=== PATIENT | female | born 1980 | race Caucasian/White ===

== ENCOUNTER 2019-10-19 18:26 | Emergency (ER) | payer MEDICAID ==
[~2019-10-19] VITALS: Ht 152.4 cm; Wt 43.1 kg
[2019-10-19 18:30] VITALS: BP 91/58
--- NOTE | 2019-10-19 18:34 | NUR ---
39 Y/O FEMALE FROM HOME BIBA S/P 3 WITNESSED SEIZURES AT HOME. PT WAS GIVEN 5MG VERSED IN IN ROUTE. 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 PT AOX4 AT THIS TIME. DENIES PAIN. RR EVEN AND UNLABORED. STATES SHE HAS BED SORE TO SACRUM. POSITIONED FOR COMFORT. SEIZURE PRECAUTIONS IN PLACE. VSS. PLACED ON THEATER TECHNICIAN, PULSE OX, AND BP CUFF MEDHX: HTN, HEP C, DM, SEIZURES
--- NOTE | 2019-10-19 18:35 | NUR ---
DR CARROLL AT BEDSIDE EXAMINING PT
[2019-10-19] MEDS ORDERED: NACL 0.9% 500 ML IV SCH (19:31)
--- NOTE | 2019-10-19 20:00 | NUR ---
LAB AT BEDSIDE, ABLE TO OBTAIN SPECIMEN
[2019-10-19] MEDS ORDERED: MORPHINE SULFATE 2 MG/ML SYR IM ONE (20:15)
[2019-10-19] MEDS ORDERED: ONDANSETRON 4 MG ODT PO ONE (20:20)
[2019-10-19 20:23] LABS: BASOPHILS # (AUTO) 0.1 K/uL (0.00-0.22); BASOPHILS % (AUTO) 0.7 % (0.0-2.0); EOSINOPHILS # (AUTO) 0.1 K/uL (0-0.4); HEMATOCRIT 31.4 % (36-48); HEMOGLOBIN 10.3 g/dL (12.0-16.0); LYMPHOCYTES # (AUTO) 2.2 K/uL (2.5-16.5); MEAN CORPUSCULAR HEMOGLOBIN 28 pg (27-31); MEAN CORPUSCULAR HGB CONC 33 g/dL (33-37); MEAN CORPUSCULAR VOLUME 85.9 fL (80-94); MONOCYTES # (AUTO) 0.5 K/uL (0.8-1.0); MONOCYTES % (AUTO) 6.5 % (1.7-9.3); NEUTROPHILS # (AUTO) 5.3 K/uL (1.8-7.7); NEUTROPHILS % (AUTO) 64.8 % (42.2-75.2); PLATELET COUNT (AUTO) 449 K/uL (140-450); RED BLOOD CELL COUNT(AUTO) 3.65 MIL/uL (4.20-5.40); RED CELL DISTRIBUTION WIDTH 15.2 % (11.6-13.7); WHITE BLOOD COUNT (AUTO) 8.2 K/uL (4.8-10.8)
[2019-10-19 20:38] LABS: PROTHROMBIN TIME 8.7 secs (10.8-13.4)
[2019-10-19 20:43] LABS: ALBUMIN 1.9 g/dL (3.4-5.0); ANION GAP 15.2 (8-16); CREATININE 1.2 mg/dL (0.6-1.3); POTASSIUM 3.2 mmol/L (3.5-5.1); TOTAL BILIRUBIN 0.1 mg/dL (0.0-1.0)
[2019-10-19] MEDS ORDERED: LEVOFLOXACIN 500 MG TAB PO ONE (20:50)
--- NOTE | 2019-10-19 21:01 | NUR ---
URINE COLLECTED VIA ALVAREZ BAG-- GIVEN TO LAB.
[2019-10-19 21:03] LABS: ACETAMINOPHEN < 0.5 ug/ml (10-30); SALICYLATE < 2.8 mg/dL (2.8-20.0)
[2019-10-19 21:05] LABS: APPEARANCE,URINE CLOUDY (CLEAR); BILIRUBIN,URINE NEGATIVE (NEGATIVE); BLOOD, URINE 2+ (NEGATIVE); COLOR,URINE YELLOW (YELLOW); LEUKOCYTE ESTERASE ,URINE 2+ (NEGATIVE); NITRITE, URINE NEGATIVE (NEGATIVE); UGLUCOSE TRACE (NEGATIVE)
[2019-10-19 21:33] LABS: BARBITURATE, URINE NEGATIVE ng/ml (NEG <=200); BENZODIAZEPINE, URINE NEGATIVE ng/mL (NEG <=200); CANNABINOID, URINE NEGATIVE ng/mL (NEG <=50); COCAINE, URINE NEGATIVE ng/mL (NEG <=300); OPIATE, URINE POSITIVE ng/mL (NEG <=2000); PHENCYCLIDINE SCREEN,URINE NEGATIVE ng/mL (NEG <=25)
[2019-10-19] MEDS ORDERED: levETIRAcetam 500 MG TAB PO ONE (21:35)
[2019-10-19 21:58] LABS: RBC,URINE 0-5 /HPF (0-5); WBC,URINE 60-80 /HPF (0-5)
[2019-10-19 22:23] VITALS: BP 91/58
== END 2019-10-19 22:23 | disposition home or self-care (01) ==
LOC: MED 18:26
DX: R56.9 Unspecified convulsions (principal); N39.0 Urinary tract infection, site not specified; E11.9 Type 2 diabetes mellitus without complications; I10 Essential (primary) hypertension
CPT/HCPCS: 36415; 71045; 80053; 80305; 81001; 83605; 83880; 84484; 85025; 85610; 85730; 87040; 87086; 87186; 93005; 96372; 99285; G0480; G0482; J2270; Q0092; Q0162

== ENCOUNTER 2019-10-21 18:23 | Inpatient (IN) | payer MEDICAID ==
[~2019-10-21] VITALS: Ht 152.4 cm; Wt 45.4 kg
[2019-10-21 18:23] VITALS: BP 117/79
--- NOTE | 2019-10-21 18:23 | NUR ---
Patient BIBA ALS accompanied by Larissa ramirez 183, transferred to bed 7. RN evaluating patient at bedside.
--- NOTE | 2019-10-21 18:33 | NUR ---
BIBA C/O SEIZURE, X3 EPISODES LASTING 30 SECONDS EACH WITHIN 2 MINUTES, SEIZURES OCCURRED IN BED, NO TRAUMA NOTED; 2 SEIZURES WITNESSED BY EMS; PT DOES NOT FEVER, SOB, OR COUGH NOTICED AT THIS TIME; PATIENT'S PAIN IS 0/10 ON FLACC SCALE AT THIS TIME; A&OX0 BUT PT CAN BE AROUSED BY VOICE. VSS; PATIENT POSITIONED FOR COMFORT; HOB ELEVATED; BEDRAILS UP WITH SEIZURE PADS X2; BED DOWN. ER MD MADE AWARE OF PT STATUS.
--- NOTE | 2019-10-21 18:35 | NUR ---
Dr. Osuna is evaluating the patient at bedside.
[2019-10-21] MEDS ORDERED: levETIRAcetam 1,000 MG in NACL 0.9% 100 ML IV ONE (18:50)
[2019-10-21] MEDS ORDERED: LORazepam 2 MG/ML VIAL IVP ONE (18:50)
[2019-10-21] MEDS ORDERED: levETIRAcetam 100 MG/ML VIAL IV ONE (18:56)
--- NOTE | 2019-10-21 19:18 | NUR ---
RECEIVED REPORT FROM JAZMÍN HUFFMAN FOR CONTINUATION OF CARE.
--- NOTE | 2019-10-21 19:25 | NUR ---
Pt report given to JAZMÍN Edmond. Transfer of care at this time.
--- NOTE | 2019-10-21 19:28 | NUR ---
LAB AT BEDSIDE.
--- NOTE | 2019-10-21 19:36 | NUR ---
PT TAKEN TO CT VIA [facility].
--- NOTE | 2019-10-21 19:45 | NUR ---
PT SAO2 99% ON RM AIR, NO OXYGEN NEEDED AT THIS TIME.
--- NOTE | 2019-10-21 19:53 | NUR ---
PT RETURNED FROM CT VIA [facility].
--- NOTE | 2019-10-21 20:02 | NUR ---
PT C/O 11/[address] CARROLL MADE AWARE. PER DR. CARROLL ADMINISTER IM 2ML TORADOL.
[2019-10-21] MEDS ORDERED: KETOROLAC 60 MG/2 ML VIAL IM ONE (20:05)
--- NOTE | 2019-10-21 20:06 | NUR ---
PT STATES SHE JUST REMEMBERED SHE IS ALLERGIC TO TORADOL AND WISHES TO REFUSE MEDICATION. ERMD MADE AWARE.
--- NOTE | 2019-10-21 20:15 | NUR ---
FREDDY MADE AWARE PT ALLERGIC TO KETOROLAC AND WISHES TO REFUSE MEDICATION. PER DR. CARROLL ADMINISTER 1GM TYLENOL FOR PT PAIN.
[2019-10-21 20:33] LABS: BASOPHILS # (AUTO) 0.2 K/uL (0.00-0.22); BASOPHILS % (AUTO) 1.7 % (0.0-2.0); EOSINOPHILS # (AUTO) 0.2 K/uL (0-0.4); EOSINOPHILS % (AUTO) 2.3 % (0.0-4.0); HEMATOCRIT 31.1 % (36-48); HEMOGLOBIN 10.3 g/dL (12.0-16.0); LYMPHOCYTES # (AUTO) 3.3 K/uL (2.5-16.5); MEAN CORPUSCULAR HEMOGLOBIN 28 pg (27-31); MEAN CORPUSCULAR HGB CONC 33 g/dL (33-37); MEAN CORPUSCULAR VOLUME 85.5 fL (80-94); MONOCYTES # (AUTO) 0.5 K/uL (0.8-1.0); MONOCYTES % (AUTO) 5.6 % (1.7-9.3); NEUTROPHILS % (AUTO) 54.4 % (42.2-75.2); PLATELET COUNT (AUTO) 395 K/uL (140-450); RED BLOOD CELL COUNT(AUTO) 3.64 MIL/uL (4.20-5.40); RED CELL DISTRIBUTION WIDTH 15.5 % (11.6-13.7); WHITE BLOOD COUNT (AUTO) 9.1 K/uL (4.8-10.8)
[2019-10-21 20:46] LABS: ANION GAP 12.8 (8-16); CARBON DIOXIDE 16.4 mmol/L (21-32); CREATININE 1.2 mg/dL (0.6-1.3); POTASSIUM 3.2 mmol/L (3.5-5.1)
[2019-10-21] MEDS ORDERED: ACETAMINOPHEN EXTRA STRENGTH 500 MG TAB PO ONE (20:55)
[2019-10-21] MEDS ORDERED: HYDROcodone/APAP 7.5/325 MG 1 TAB PO PRN (21:00)
[2019-10-21] MEDS ORDERED: DOCUSATE SODIUM 100 MG GELCAP PO PRN (21:00)
[2019-10-21] MEDS ORDERED: ONDANSETRON 4 MG/2 ML VIAL IM/IVP PRN (21:00)
[2019-10-21 21:17] LABS: APPEARANCE,URINE HAZY (CLEAR); BILIRUBIN,URINE NEGATIVE (NEGATIVE); BLOOD, URINE TRACE-I (NEGATIVE); COLOR,URINE STRAW (YELLOW); LEUKOCYTE ESTERASE ,URINE 2+ (NEGATIVE); NITRITE, URINE NEGATIVE (NEGATIVE); UGLUCOSE 1+ (NEGATIVE)
[2019-10-21 21:32] LABS: RBC,URINE 0-5 /HPF (0-5)
[2019-10-21 21:33] LABS: WBC,URINE TOO MANY TO COUNT /HPF (0-5)
[2019-10-21 21:35] LABS: PROTHROMBIN TIME 9.3 secs (10.8-13.4)
[2019-10-21 21:49] LABS: CHOL/HDL RATIO 2.8 (1-4.5); MAGNESIUM 1.5 mg/dL (1.8-2.4); PHOSPHORUS 2.7 mg/dL (2.5-4.9); THYROID STIMULATING HORMONE 2.04 uIU/mL (0.34-3.74)
--- NOTE | 2019-10-21 22:25 | NUR ---
Dr. Abbasi examining patient.
[2019-10-21] MEDS ORDERED: CHOL1POW67 (22:43)
[2019-10-21] MEDS ORDERED: FLUD0.1T2 PO (22:43)
[2019-10-21] MEDS ORDERED: PRO5 PO (22:43)
[2019-10-21] MEDS ORDERED: GABA100C PO (22:43)
[2019-10-21] MEDS ORDERED: METO-485 PO (22:43)
[2019-10-21] MEDS ORDERED: CARI350T PO (22:43)
[2019-10-21] MEDS ORDERED: PANT40PK PO (22:43)
[2019-10-21] MEDS ORDERED: OMEP20TA56 PO (22:43)
[2019-10-21] MEDS ORDERED: KEP500 PO (22:43)
[2019-10-21] MEDS ORDERED: MORPHINE SULFATE 2 MG/ML SYR IVP ONE (23:05)
--- NOTE | 2019-10-22 00:05 | NUR ---
Patient will be admitted to care of DR. CONTRERAS. Admited to TELEMETRY. Will go to room 125B. Belongings list completed. Report to AKILA ROSEN RN.
[2019-10-22] MEDS ORDERED: DEXTROSE 50% 50 ML SYR IVP PRN (00:10)
[2019-10-22 00:15] VITALS: BP 89/55
[2019-10-22] MEDS ORDERED: MAG SULF 2000 MG/WATER PREMIX 50 ML IV ONE (00:25)
[2019-10-22] MEDS ORDERED: POTASSIUM CHLORIDE 40 MEQ, LIDOCAINE MPF 1% 25 MG in NACL 0.9% 250 ML IV ONE (00:25)
--- NOTE | 2019-10-22 00:30 | NUR ---
ADMITTED THE PATIENT FROM ER VIA GURNEY. PATIENT A/A/OX4, ON BEDREST. PATIENT HAS GENERALIZED WEAKNESS. PER PT SHE HASN'T BEEN WALKING FOR 6 MONTHS NOW. BP 89/55, PT HAS HX OF HYPOTENSION,HR-98,RR-18, TEMP-98.5, SATING 99% ON RA. PT COMPLAINING OF GENERALIZED PAIN 10/10 AND ASKED FOR PRN PAIN MEDS. PATIENT HAS A 1 TIME ORDER FOR MORPHINE FROM ER,GIVEN ORDERED. WILL MONITOR PT BP. OTHERWISE PT DENIES ANY CHEST PAIN,SOB AND DIZZINESS. SR ON AGENCY TRAINER, HR-100. ORIENTED THE PATIENT TO THE ROOM SETTING AND USE OF CALL LIGHT SYSTEM. FALL PRECAUTION IMPLEMENTED..INSTRUCTED THE PT NOT TO GET OOB WITHOUT ASSISTANCE. PATIENT VERBALIZED UNDERSTANDING WITH THE POC. CALL LIGHT WITHIN REACH. WILL CONTINUE POC AND MONITORING.
[2019-10-22] MEDS ORDERED: MORPHINE SULFATE 2 MG/ML SYR ONE (00:49)
[2019-10-22] MEDS ORDERED: cefTRIAXone 1,000 MG VIAL ONE (02:06)
--- NOTE | 2019-10-22 03:05 | NUR ---
PATIENT ASLEEP AT THIS TIME. VISIBLE CHEST RISE AND FALL NOTED. CALL LIGHT WITHIN REACH.
[2019-10-22 04:00] VITALS: BP 89/51
--- NOTE | 2019-10-22 04:30 | NUR ---
Dr abbasi made aware that the potassium chloride 40 meq IV with lidocaine he ordered won't be able to give tonight because Pharmacy has to mix it and will be given during day shift. Per Dr Abbasi its Ok and no further order given.
--- NOTE | 2019-10-22 06:30 | NUR ---
PATIENT DIDN'T HAVE BM. WILL ENDORSE TO DAY SHIFT TO COLLECT THE C-DIFF SPECIMEN IF THE PATIENT GOES.NO ACUTE EVENTS THROUGHOUT THE NIGHT. NO SIGN AND SYMPTOMS OF DISTRESS NOTED. NO COMPLAIN AT THIS TIME. ALL NEEDS ATTENDED.CALL LIGHT WITHIN REACH. WILL ENDORSE THE PT TO THE ONCOMING RN FOR CONTINUITY OF CARE.
[2019-10-22 07:30] LABS: BASOPHILS # (AUTO) 0.1 K/uL (0.00-0.22); BASOPHILS % (AUTO) 0.8 % (0.0-2.0); EOSINOPHILS # (AUTO) 0.2 K/uL (0-0.4); EOSINOPHILS % (AUTO) 2.8 % (0.0-4.0); HEMATOCRIT 31.7 % (36-48); HEMOGLOBIN 10.3 g/dL (12.0-16.0); LYMPHOCYTES # (AUTO) 4.1 K/uL (2.5-16.5); LYMPHOCYTES % (AUTO) 46.8 % (20.5-51.1); MEAN CORPUSCULAR HEMOGLOBIN 28 pg (27-31); MEAN CORPUSCULAR HGB CONC 33 g/dL (33-37); MEAN CORPUSCULAR VOLUME 85.2 fL (80-94); MONOCYTES # (AUTO) 0.5 K/uL (0.8-1.0); MONOCYTES % (AUTO) 5.8 % (1.7-9.3); NEUTROPHILS # (AUTO) 3.9 K/uL (1.8-7.7); NEUTROPHILS % (AUTO) 43.8 % (42.2-75.2); PLATELET COUNT (AUTO) 263 K/uL (140-450); RED BLOOD CELL COUNT(AUTO) 3.72 MIL/uL (4.20-5.40); RED CELL DISTRIBUTION WIDTH 15.4 % (11.6-13.7); WHITE BLOOD COUNT (AUTO) 8.8 K/uL (4.8-10.8)
[2019-10-22 08:00] VITALS: BP 95/58
--- NOTE | 2019-10-22 08:02 | NUR ---
RECEIVED REPORT FROM PM RN, KAMRAN. PT C/O SEIZURES. DX OF SEIZURES NON-EPILECTIC. HX OF HYPOTENSION, DM, SEIZURES. CLEAR LIQUID DIET. FOLY IN PLACE. 18G IN LT UPPER ARM. A&OX4. MONITOR BLOOD SUGAR. WILL CONTINUE PLAN OF CARE.
--- NOTE | 2019-10-22 08:25 | NUR ---
PATIENT HAS BEEN SCREENED AND CATEGORIZED HIGH NUTRITION RISK. PATIENT WILL BE SEEN WITHIN 1-2 DAYS OF ADMISSION. 10/22/19-10/23/[address]
--- NOTE | 2019-10-22 08:30 | NUR ---
PT HAD SEIZURE THAT LASTED 15 SEC. ATIVAN GIVEN 1MG/0.5ML IVP. PHYSICIAN NOTIFIED. PT RETURNED FROM SEIZURE. NO HEAD TRAUMA.
--- NOTE | 2019-10-22 08:30 | NUR ---
BLOOD SUGAR WAS 52. PHYSICIAN NOTIFIED. CONTINUE TO MONITOR. GAVE FRUIT JUICE TO HELP INCREASE BLOOD GLUCOSE.
[2019-10-22] MEDS: LORazepam 2 MG/ML VIAL IM/IVP PRN ×2 (08:37→18:46)
[2019-10-22] MEDS: BLOOD GLUCOSE MONITORING 1 DEV DEV FS SCH ×4 (08:41→20:47)
[2019-10-22] MEDS ORDERED: levETIRAcetam 500 MG TAB PO SCH (09:00)
[2019-10-22] MEDS: FLUDROCORTISONE 0.1 MG TAB PO SCH (09:00)
[2019-10-22] MEDS ORDERED: NON-FORMULARY ITEM (Pantoprazole Sodium (Protonix) 40 MG) PO SCH (09:00)
[2019-10-22] MEDS: GABAPENTIN 100 MG CAP PO SCH ×3 (09:00→20:44)
[2019-10-22] MEDS: MIDODRINE 5 MG TAB PO SCH ×2 (09:00→20:45)
[2019-10-22] MEDS: PANTOPRAZOLE 40 MG TABEC PO SCH (09:00)
[2019-10-22] MEDS ORDERED: levETIRAcetam 1,000 MG in NACL 0.9% 100 ML IV SCH (10:00)
[2019-10-22 12:00] VITALS: BP 127/73
[2019-10-22] MEDS: CARISOPRODOL 350 MG TAB PO SCH (12:21)
[2019-10-22 14:10] LABS: BARBITURATE, URINE NEGATIVE ng/ml (NEG <=200); BENZODIAZEPINE, URINE NEGATIVE ng/mL (NEG <=200); CANNABINOID, URINE NEGATIVE ng/mL (NEG <=50); COCAINE, URINE NEGATIVE ng/mL (NEG <=300); OPIATE, URINE POSITIVE ng/mL (NEG <=2000); PHENCYCLIDINE SCREEN,URINE NEGATIVE ng/mL (NEG <=25)
--- NOTE | 2019-10-22 15:33 | NUR ---
RAPID RESPONSE CALLED. RT, ELECTRIC DETECTOR OPERATOR, PHYSICIAN, MEDICAL CERTIFICATION SPECIALIST, EMT ARRIVED AT BEDSIDE. PT HAD ANOTHER SEIZURE THAT LASTED 10 SECS. NO ATIVAN GIVEN. BLOOD SUGAR WAS 71. BLOOD PRESSURE WAS LOW 86/41. HR INCREASED TO 125. RESPIRATIONS 24. O2 SAT 96% RA. SEIZURE ACTIVITY STOPPED. PT LOOKED IF SHE WAS SLEEPING. PHYSICIAN STATED TO WATCH PT. NO ADDITIONAL ORDERS.
--- NOTE | 2019-10-22 15:37 | NUR ---
DISCHARGE PLANNING: THIS IS A 39 Y/O FEMALE PATIENT FROM HOME, WHO CAME IN DUE TO SEIZURES. PAST MEDICAL HISTORY INCLUDE DM, HEP C, EPILEPSY, LOWER EXT NEUROPATHY AND ADRENAL INSUFFICIENCY. INITIAL DIAGNOSIS OF PERSISTENT THERAPEUTIC SEIZURES. CURRENT LABS INCLUDE WBC 8.8, H/H 10.3/31.7, NA/K 136/3.2, BUN/CREA 26/1.2. NEURO CONSULT IN PLACE AND SEEN - EEG, UDS AND ETOH LEVEL PENDING. ONCE SEIZURE FREE FOR 24 HOURS OK TO DC TO HOME ON KEPPRA 1000MG BID. Addendum: 10/23/19 at 1435 by Monica Arteaga CURRENT LABS INCLUDE WBC 9.2, H/H 10.2/31.5, NA/K 138/3.6, BUN/CREA 35/1.5 AND MAG 1.7. ON ROOM AIR. ON KEPPRABOB.
--- NOTE | 2019-10-22 15:38 | NUR ---
ENVIRONMENTAL STUDIES DEPARTMENT CHAIR NOTE: Patient's Orientation Person Situation Place Time Information Provided By PATIENT Repair Mechanic, Realtionship and Phone Number FRANNIE JOYNER MOTHER [phone] Healthcare Power of Mixer [employer] No Does Patient Have a POLST No Identifying Problems No Social Work Triggers Is A Social Work Consult Needed No Mandate Report Filed No Explanation Of Identifying Problems PATIENT IS A 39-YEAR-OLD ADMITTED FOR PERSISTENT THERAPEUTIC SEIZURES. PATIENT HAS PMHX OF DM, HEP C, EPILEPSY, AND LOWER EXTREMITY NEUROPATHY. Admitted From Home Pre-Admission Level Of Functioning Status Independent With DME Prior Resources/Services Used In Last 12 Months [facility] Prior Resources/Service Comments PATIENT IS IN THE PROCESS OF APPLYING FOR [facility]. PATIENT'S CHOSEN CAREGIVER IS DARREL MICHELLERERA [phone]. Prior DME Home Oxygen Walker Wheelchair Living Situation House Patient Had Caregiver Yes Name and Contact Number Of Designated Caregiver DARREL ELLIS [phone]. Home Support CG/Fam Able To Meet Need Financial Issues No Known Financial Issue Factors/Needs No D/C Needs Identified Pt/Rep Participated In Discharge Plan Yes Patient/Family Agress With Discharge Plan Yes Discharge Plan Comments TENTATIVE DISCHARGE PLAN IS FOR PATIENT TO RETURN HOME. DC Plan Status Initiated
--- NOTE | 2019-10-22 15:51 | NUR ---
10/22/19 RD INITIAL ASSESSMENT COMPLETED PLEASE REFER TO NUTRITION ASSESSMENT UNDER CARE ACTIVITY FOR ESTIMATED NUTRITIONAL NEEDS. 1. CONTINUE REGULAR DIET TOLERATED 2. RECOMMEND GLUCERNA BID AND JAMEL BID 3. SNACKS WILL BE PROVIDED 3X DAY 4. FOLLOW PATIENTS FOOD PREFERENCES 5. RD PROVIDED HIGH CALORIE AND PROTEIN DIET EDUCATION 6. RD TO FOLLOW-UP 3-5 DAYS, MODERATE RISK JOB MUNOZ, RD
[2019-10-22 16:00] VITALS: BP 81/46
[2019-10-22 16:36] LABS: MAGNESIUM 1.7 mg/dL (1.8-2.4)
[2019-10-22 16:45] LABS: POTASSIUM 3.7 mmol/L (3.5-5.1)
[2019-10-22 16:46] LABS: CREATININE 1.3 mg/dL (0.6-1.3)
[2019-10-22 16:47] LABS: ANION GAP 25.9 (8-16); CARBON DIOXIDE 8.8 mmol/L (21-32)
--- NOTE | 2019-10-22 16:57 | NUR ---
SPOKE WITH PHYSICIAN ABOUT ABOUT K RIDER THAT WAS NOT GIVEN LAST NIGHT, PHYSICIAN DC MEDICATION. SPOKE TO PHYSICIAN ABOUT A LAB VALUE. LOW CO2 8.8. NO FURTHER ASSESSMENTS AT THIS TIME. CONTINUE TO MONITOR.
--- NOTE | 2019-10-22 18:30 | NUR ---
PT HAD ANOTHER SEIZURE AT 1830 THAT LASTED 15 SECS. ATIVAN 1MG/0.5ML GIVEN. PT HAD A BOWEL MOVEMENT. NO HEAD TRAUMA. POST SEIZURE, PT STATED THAT SHE HAD AN AURA PROCEEDING SEIZURE. PT NOW RESTING IN BED SUPINE. WILL CONTINUE TO MONITOR.
--- NOTE | 2019-10-22 19:00 | NUR ---
TRANSFER OF CARE TO PM, JAZMÍN THAKKAR. NOTIFIED ONCOMING SHIFT OF PT SEIZURES THROUGH OUT THE DAY. FREQUENT ROUNDING NEEDED.
--- NOTE | 2019-10-22 19:00 | NUR ---
RECEIVED PT AAOX4 , NID - RA O2 SAT WNL . SAFETY MEASURE IN PLACE - ON S2 PREC . IV SITE INTACT AND PATENT - W/ OPEN WOUND ON SACRAL AREAS , W/ FC JOSE L JOHNSON U.O . PLAN OF CARE DISCUSSED AND VERBALIZE UNDERSTANDING - STOOL SPECIMEN TO BE SENT TO LAB FOR STOOL C DIFF - ON CONTACT PREC. WILL CONT . TO MONITOR.
[2019-10-22 20:00] VITALS: BP 100/60
--- NOTE | 2019-10-22 20:32 | NUR ---
OUR CHARGE NURSE ARUN APPROACH TO ME SHE SAID THE AM NURSE ADMINISTERED THE GABAPENTIN TOO LATE , PER ARUN GIVE GABAPENTIN AND PROAMANTINE NOW .
[2019-10-22] MEDS: levETIRAcetam 500 MG TAB PO SCH (20:45)
[2019-10-22] MEDS ORDERED: LORazepam 1 MG TAB PO SCH (21:40)
--- NOTE | 2019-10-22 22:23 | NUR ---
PT. SLEEPING - ATIVAN TAB. NOT GIVEN - PT SOUNDLY ASLEEP - JUST GIVEN KEPPRA WHILE AGO .
[2019-10-23] VITALS: BP 111/61
--- NOTE | 2019-10-23 | NUR ---
MADE ROUNDS , NO S/SX OF ACTE DISTRESS NOTED AT THIS TIME , ON TELE MONITOR.
--- NOTE | 2019-10-23 02:00 | NUR ---
PT .NO COMPLAIN MADE .
[2019-10-23] MEDS ORDERED: LOPERAMIDE 2 MG CAP PO SCH (02:25)
[2019-10-23 04:00] VITALS: BP 100/60
--- NOTE | 2019-10-23 04:00 | NUR ---
MADE ROUNDS , NO S/SX OF ACUTE DISTRESS NOTED . CALL LIGHT WITHIN REACH .
--- NOTE | 2019-10-23 06:00 | NUR ---
RESTING ON BED , NO COMPLAIN MADE . HAD WATERY BM IN SMALL AMT 4 X FROM 1900 - WILL ENDORSE TO SURJIT MONITOR PROGRESSION OF DIARRHEA AND BP - PT HAD HX OF HYPOTENSION .
[2019-10-23] MEDS: BLOOD GLUCOSE MONITORING 1 DEV DEV FS SCH ×4 (06:01→20:33)
[2019-10-23] MEDS: INSULIN LISPRO SLIDING SCALE 100 UNITS/ML VIAL SUBQ PRN ×4 (06:02→20:29)
[2019-10-23 06:39] LABS: BASOPHILS # (AUTO) 0.1 K/uL (0.00-0.22); EOSINOPHILS # (AUTO) 0.2 K/uL (0-0.4); EOSINOPHILS % (AUTO) 2.3 % (0.0-4.0); HEMATOCRIT 31.5 % (36-48); HEMOGLOBIN 10.2 g/dL (12.0-16.0); LYMPHOCYTES # (AUTO) 2.8 K/uL (2.5-16.5); LYMPHOCYTES % (AUTO) 30.8 % (20.5-51.1); MEAN CORPUSCULAR HEMOGLOBIN 28 pg (27-31); MEAN CORPUSCULAR HGB CONC 33 g/dL (33-37); MEAN CORPUSCULAR VOLUME 86.1 fL (80-94); MONOCYTES # (AUTO) 0.5 K/uL (0.8-1.0); MONOCYTES % (AUTO) 5.1 % (1.7-9.3); NEUTROPHILS # (AUTO) 5.6 K/uL (1.8-7.7); NEUTROPHILS % (AUTO) 60.8 % (42.2-75.2); PLATELET COUNT (AUTO) 423 K/uL (140-450); RED BLOOD CELL COUNT(AUTO) 3.66 MIL/uL (4.20-5.40); RED CELL DISTRIBUTION WIDTH 15.8 % (11.6-13.7); WHITE BLOOD COUNT (AUTO) 9.2 K/uL (4.8-10.8)
[2019-10-23 07:05] LABS: PHOSPHORUS 3.7 mg/dL (2.5-4.9)
[2019-10-23 07:11] LABS: ANION GAP 13.5 (8-16); CARBON DIOXIDE 18.1 mmol/L (21-32); CREATININE 1.5 mg/dL (0.6-1.3); POTASSIUM 3.6 mmol/L (3.5-5.1)
--- NOTE | 2019-10-23 07:12 | NUR ---
ENDORSED TO AM SHIFT - PT - STABLE .
[2019-10-23 07:19] LABS: T4 (THYROXINE) 5.2 ug/dL (4.5-12.0)
--- NOTE | 2019-10-23 07:20 | NUR ---
RECEIVED REPORT FROM GIS APPLICATION DEVELOPER NURSE. PATIENT LYING DOWN IN BED. NO DISTRESS NOTED. PER NIGHT RN, NO SEIZURES THROUGHOUT NIGHTTIME. AAOX3, CALM, COOPERATIVE, SKIN COLOR APPROPRIATE TO ETHNICITY, WARM TO TOUCH. HAS SACRAL WOUND, DRESSING DRY AND INTACT. IV SITE INTACT, PATENT,A ND INFUSING IVF PER MD ORDERS. RESPIRATIONS EVEN, UNLABORED, ON ROOM AIR. REVIEWED PLAN OF CARE WITH PATIENT. PATIENT VERBALIZED UNDERSTANDING. SAFETY MEASURES IN PLACE, CALL LIGHT WITHIN REACH. WILL CONTINUE TO MONITOR.
[2019-10-23 08:00] VITALS: BP 106/52
[2019-10-23] MEDS: LORazepam 2 MG/ML VIAL IM/IVP PRN ×3 (08:43→20:15)
[2019-10-23] MEDS: FLUDROCORTISONE 0.1 MG TAB PO SCH (08:45)
[2019-10-23] MEDS: MIDODRINE 5 MG TAB PO SCH ×2 (08:45→17:48)
[2019-10-23] MEDS: levETIRAcetam 500 MG TAB PO SCH ×2 (08:45→20:30)
[2019-10-23] MEDS: GABAPENTIN 100 MG CAP PO SCH ×3 (08:47→17:48)
[2019-10-23] MEDS: PANTOPRAZOLE 40 MG TABEC PO SCH (08:47)
[2019-10-23] MEDS: CARISOPRODOL 350 MG TAB PO SCH (08:50)
--- NOTE | 2019-10-23 08:51 | NUR ---
PATIENT SITTING IN BED EATING BREAKFAST, PRESSED CALL LIGHT AND SAID SHE WAS FEELING AURA FOR SEIZURE ABOUT TO START. GAVE ATIVAN AT THIS TIME PER ORDERS AND OTHER SCHEDULED MEDICATIONS. WILL CONTINUE TO MONITOR.
--- NOTE | 2019-10-23 09:04 | NUR ---
ASSISTED ROTO ROOTER OPERATOR IN CLEANING AND REPOSITIONING PATIENT. WILL CONTINUE TO MONITOR.
--- NOTE | 2019-10-23 10:11 | NUR ---
WOUND CARE EVALUATION NOTE: REASON FOR EVALUATION: LOW VIN SCALE AND PRESSURE ULCER WOUND SKIN ASSESSMENT DONE WITH THIS 39Y/O FEMALE PT. PT EYES OPENED WHEN TALK TO HER, BED REST AND ABLE TO FOLLOW DIRECTIONS.ALBUMIN LEVEL 1.9, MULTIPLE BONY PROMINENCES WITH BLANCHABLE REDNESS, INSTRUCT PT. TO TURN AND REPOSITION Q 15-30 MINUTES OR FREQUENT POSSIBLE. PT SKIN IS WARM AND DRY, BLE HAIR NO HAIR GROWTH, NO EDEMA. DORSAL PEDAL PULSES PRESENT AND NORMAL. CAPILLARY REFILLED < 2 SEC. X 10 TOES. PLAN OF CARE DISCUSSED WITH PRIMARY RN. INTEGUMENTARY: -MOISTURE ASSOCIATED DERMATITIS (MAD) TO: B/L GROINS, DARREL-ANAL AREA, SKIN REDNESS INTACT -PRESSURE ULCER INJURY UN-STAGEABLE, SACROCOCCYX 2X1CM, WOUND BED 100% OF SOFT YELLOW SLOUGH TISSUE, MOIST WOUND EDGE FLAT WITH DARREL-WOUND SKIN MOIST AND SURROUNDING REDNESS INDICATED FURTHER DAMAGE. -LOWER LUMBAR, PELVIC, RIGHT AND LEFT HEELS BLANCHABLE REDNESS RECOMMENDATIONS: -APPLY HYDRAGUARD TO R/L GROINS AND PERIANAL AREA BID AND PRN IF SOILING - CLEANSE SACRALCOCCYX WITH WOUND CLEANSING SOLUTION AND APPLY THERAHONEY GEL COVER WITH FOAM DRESSING QD AND PRN IF SOILING -APPLY FOAM DRESSING TO LOWER LUMBAR, PELVIC, BONES AREA PREVENTION -OFFLOAD BILATERAL HEELS BY PLACING PILLOWS UNDER CALVES UNLESS OTHERWISE CONTRAINDICATED -PRESSURE REDISTRIBUTION SURFACE THERAPY -TURN AND REPOSITION Q2H, OFFLOAD SACRALCOCCYX AND BUTTOCKS BY TURNING RIGHT AND LEFT -CONTINUE TO FOLLOW RD RECOMMENDATIONS ALL ABOVE RECOMMENDATIONS DISCUSSED WITH PRIMARY RN. PLEASE CONTACT WOUND CARE NURSE FOR ANY QUESTION AND CHANGE OF WOUND CONDITION.
[2019-10-23] MEDS: NACL 0.9% 1,000 ML IV SCH ×2 (10:20→13:18)
--- NOTE | 2019-10-23 11:30 | NUR ---
ON SITE SOIL EVALUATOR AT BEDSIDE TO PERFORM EEG. WILL CONTINUE TO MONITOR.
[2019-10-23] MEDS ORDERED: THERAHONEY GEL 42.5 GM TP PRN (11:40)
[2019-10-23] MEDS ORDERED: HYDRAGUARD CREAM TP PRN (11:40)
[2019-10-23 12:00] VITALS: BP 114/56
[2019-10-23] MEDS: HYDRAGUARD CREAM TP SCH (12:58)
[2019-10-23] MEDS: THERAHONEY GEL 42.5 GM TP SCH (12:58)
[2019-10-23] MEDS ORDERED: FOAM DRESSING TP SCH (13:00)
--- NOTE | 2019-10-23 13:00 | NUR ---
PATIENT SITTING IN BED EATING. SCHEDULED MEDICATIONS DUE GIVEN. WILL CONTINUE TO MONITOR.
--- NOTE | 2019-10-23 13:15 | NUR ---
PATIENT FEELS SEIZURE AURA, ATIVAN GIVEN PER MD ORDERS AT THIS TIME. WILL CONTINUE TO MONITOR.
[2019-10-23] MEDS ORDERED: KEP500 PO (14:07)
[2019-10-23 16:00] VITALS: BP 144/42
--- NOTE | 2019-10-23 17:58 | NUR ---
PATIENT HAD A 20 SECOND SEIZURE. ATIVAN GIVEN TO PATIENT. AFTER 20 SECONDS SEIZURE STOPPED AND PATIENT ABLE TO RESPOND. WILL CONTINUE TO MONITOR.
--- NOTE | 2019-10-23 19:04 | NUR ---
GAVE REPORT TO SALES AND MERCHANDISING ASSOCIATE NURSE FOR CONTINUITY OF CARE. PATIENT IN STABLE CONDITION.
--- NOTE | 2019-10-23 19:05 | NUR ---
RECEIVED BEDSIDE REPORT FROM DAY SHIFT NURSE. PATIENT IS AWAKE, ALERT, AND COOPERATIVE. NO SEIZURES NOTED. SKIN IS WARM AND DRY. IV PATENT AND INTACT. PLAN OF CARE WAS DISCUSSED. ALL SAFETY MEASURES IN PLACE. BED IS AT LOW POSITION. CALL LIGHT WITHIN REACH. WILL CONTINUE TO MONITOR.
[2019-10-23 20:00] VITALS: BP 109/47
--- NOTE | 2019-10-23 20:00 | NUR ---
INITIAL ASSESSMENT DONE. VITALS WERE TAKEN. ALVAREZ CATHETER NOTED DRAINING YELLOW URINE. WILL CONTINUE TO MONITOR.
--- NOTE | 2019-10-23 20:15 | NUR ---
PATIENT HAD A 20 SECOND SEIZURE. PRN ATIVAN GIVEN PER ORDER. AFTER 20 SECONDS SEIZURE STOPPED AND PATIENT ABLE TO RESPOND. WILL CONTINUE TO MONITOR.
--- NOTE | 2019-10-23 20:33 | NUR ---
ALL SCHEDULED MEDS WERE GIVEN PER ORDER. NO ASE NOTED. WILL CONTINUE TO MONITOR.
--- NOTE | 2019-10-23 21:00 | NUR ---
CHECKED PATIENT. PATIENT SLEEPING RESPIRATION EVEN UNLABORED ON ROOM AIR. NO DISTRESS NOTED. WILL CONTINUE TO MONITOR.
[2019-10-24] VITALS: BP 91/39
[2019-10-24] MEDS: HYDRAGUARD CREAM TP SCH ×2 (00:21→12:09)
[2019-10-24] MEDS: LORazepam 2 MG/ML VIAL IM/IVP PRN (00:21)
--- NOTE | 2019-10-24 00:23 | NUR ---
PER PATIENT FEELS SEIZURE AURA, PRN ATIVAN GIVEN PER ORDER. WILL CONTINUE TO MONITOR.
[2019-10-24] MEDS ORDERED: NACL 0.9% 1,000 ML IV SCH ×3 (00:35→08:35)
--- NOTE | 2019-10-24 00:45 | NUR ---
VITALS WERE TAKEN. PATIENT BP 91/39. NOTIFIED MD. MD ORDERED 1L BOLUS. WILL CONTINUE TO MONITOR.
--- NOTE | 2019-10-24 03:32 | NUR ---
PATIENT COMPLAINED OF BACK PAIN 09/22. PRN PAIN MED ADMINISTERED PER ORDER. WILL CONTINUE TO MONITOR.
[2019-10-24 04:00] VITALS: BP 97/37
--- NOTE | 2019-10-24 05:42 | NUR ---
ORDER ANOTHER 1L BOLUS. WILL CONTINUE TO MONITOR.
[2019-10-24 06:26] LABS: BASOPHILS # (AUTO) 0.1 K/uL (0.00-0.22); BASOPHILS % (AUTO) 0.8 % (0.0-2.0); EOSINOPHILS # (AUTO) 0.3 K/uL (0-0.4); EOSINOPHILS % (AUTO) 2.8 % (0.0-4.0); HEMATOCRIT 29.7 % (36-48); HEMOGLOBIN 9.3 g/dL (12.0-16.0); LYMPHOCYTES # (AUTO) 3.7 K/uL (2.5-16.5); LYMPHOCYTES % (AUTO) 31.3 % (20.5-51.1); MEAN CORPUSCULAR HEMOGLOBIN 28 pg (27-31); MEAN CORPUSCULAR HGB CONC 32 g/dL (33-37); MEAN CORPUSCULAR VOLUME 87.2 fL (80-94); MONOCYTES # (AUTO) 0.6 K/uL (0.8-1.0); MONOCYTES % (AUTO) 4.9 % (1.7-9.3); NEUTROPHILS # (AUTO) 7.1 K/uL (1.8-7.7); NEUTROPHILS % (AUTO) 60.2 % (42.2-75.2); PLATELET COUNT (AUTO) 378 K/uL (140-450); RED CELL DISTRIBUTION WIDTH 15.9 % (11.6-13.7); WHITE BLOOD COUNT (AUTO) 11.8 K/uL (4.8-10.8)
[2019-10-24] MEDS: INSULIN LISPRO SLIDING SCALE 100 UNITS/ML VIAL SUBQ PRN (06:26)
[2019-10-24 06:50] LABS: ANION GAP 14.8 (8-16); CARBON DIOXIDE 11.8 mmol/L (21-32); CREATININE 1.3 mg/dL (0.6-1.3); POTASSIUM 3.6 mmol/L (3.5-5.1)
[2019-10-24 06:55] LABS: MAGNESIUM 1.8 mg/dL (1.8-2.4); PHOSPHORUS 3.8 mg/dL (2.5-4.9)
[2019-10-24] MEDS: BLOOD GLUCOSE MONITORING 1 DEV DEV FS SCH ×2 (07:07→12:29)
--- NOTE | 2019-10-24 07:20 | NUR ---
ENDORSED PATIENT TO DAY SHIFT NURSE. PATIENT IN STABLE CONDITION
--- NOTE | 2019-10-24 07:29 | NUR ---
RECEIVED REPORT FROM CORRECTIONAL LIEUTENANT NURSE. PT SLEEPING IN BED, EASILY AROUSABLE BY VOICE. NO DISTRESS NOTED, RESPIRATIONS EVEN AND UNLABORED ON RA. AAOX3, CALM, COOPERATIVE HAS SACRAL WOUND, DRESSING DRY AND INTACT. WITH FOAM DRESSING OVER THE HIPS FOR PROTECTION. IV SITE INTACT, INFUSING NS BOLUS NOW PER DR ORDERS. REVIEWED PLAN OF CARE WITH PATIENT. PATIENT VERBALIZED UNDERSTANDING. SAFETY MEASURES IN PLACE, BEDRAILS PADDED, BED LOCKED & LOW, CALL LIGHT WITHIN REACH. WILL CONTINUE TO MONITOR.
[2019-10-24 08:00] VITALS: BP 123/55
--- NOTE | 2019-10-24 08:44 | NUR ---
Notified Dr. Santos that pt is on regular diet, sr glucose 300+ from morning labs today.
[2019-10-24] MEDS: CARISOPRODOL 350 MG TAB PO SCH (09:25)
[2019-10-24] MEDS: FLUDROCORTISONE 0.1 MG TAB PO SCH (09:26)
[2019-10-24] MEDS: levETIRAcetam 500 MG TAB PO SCH (09:26)
[2019-10-24] MEDS: MIDODRINE 5 MG TAB PO SCH (09:26)
[2019-10-24] MEDS: GABAPENTIN 100 MG CAP PO SCH ×2 (09:26→12:10)
[2019-10-24] MEDS: PANTOPRAZOLE 40 MG TABEC PO SCH (09:26)
--- NOTE | 2019-10-24 09:40 | NUR ---
Pt c/o itchiness to BL arms and chest starting at all of a sudden at 0920. No rash/redness noted on skin. This is before administering any meds on shift, and pt denies food intake this morning. Pt states she has had pruritis like this before and takes Benadryl which is effective. Dr. Lui notified.
[2019-10-24] MEDS ORDERED: LEVE1000 PO (09:55)
[2019-10-24] MEDS ORDERED: LINA5TAB PO (09:55)
[2019-10-24] MEDS ORDERED: CIPR500T4 PO (09:55)
[2019-10-24] MEDS ORDERED: GLIP10TA12 PO (09:55)
[2019-10-24] MEDS ORDERED: diphenhydrAMINE 12.5 MG/5 ML UDC PO SCH (10:00)
--- NOTE | 2019-10-24 11:47 | NUR ---
CALLED PERSON TO NOTIFY/ MOTHER FRANNIE AND NOTIFIED HER OF DISCHARGE PER PT'S REQUEST. MOTHER FRANNIE STATES SHE WILL BE HERE AROUND 1PM TODAY TO BINDER OPERATOR PATIENT.
[2019-10-24] MEDS: THERAHONEY GEL 42.5 GM TP SCH (12:09)
--- NOTE | 2019-10-24 12:14 | NUR ---
PT AAOX3, REFUSING TO HAVE WOUND DRESSINGS REMOVED TO TAKE A D/C WOUND PHOTO. PT HAD ALL WOUND DRESSINGS CHANGED OVERNIGHT SO DOES NOT WANT IT REMOVED OR CHANGED NOW.
--- NOTE | 2019-10-24 12:32 | NUR ---
HUMALOG NOT AVAILABLE AT THIS TIME. PATIENT'S MOTHER IS AT FRONT LOBBY TO PICK HER UP. PT DOES NOT WANT TO WAIT FOR SLIDING SCALE INSULIN.
[2019-10-24 13:00] VITALS: BP 96/57
--- NOTE | 2019-10-24 13:05 | NUR ---
DISCHARGE PAPERWORK, INCLUDING INSTRUCTIONS TO F/U WITH PCP AND NEUROLOGY OUTPATIENT, GIVEN TO PATIENT. NEW PRESCRIPTION/MEDICATION TEACHING AND MEDICATION RECONCILIATION TEACHING GIVEN TO PATIENT. IV SITE REMOVED WITH MINIMAL BLOOD LOSS AND LUMEN COMPLETELY INTACT. ID BANDS REMOVED. ALL PERSONAL BELONGINGS ARE WITH PATIENT. PATIENT DISCHARGED VIA WHEELCHAIR AND WILL GO HOME WITH MOTHER VIA PRIVATE VEHICLE. DRESSING CHANGES/EDUCATION AND EXTRA DRESSING SUPPLIES GIVEN TO MOTHER. PATIENT CAME INTO HOSPITAL W/ ALVAREZ CATH FROM HOME--SO WILL NOT REMOVE.
[2019-10-24] MEDS ORDERED: glipiZIDE 5 MG TAB PO SCH (16:30)
== END 2019-10-24 13:05 | disposition home or self-care (01) | DRG 53 ==
LOC: MED 18:23 → MMU 21:02
PROVIDERS: ADMIT General Practice; ATTEND General Practice
PROC: 4A00X4Z Measurement of Central Nervous Electrical Activity, External Approach (ICD-10-PCS; principal; 2019-10-23)
DX: G40.909 Epilepsy, unspecified, not intractable, without status epilepticus (principal); K85.90 Acute pancreatitis without necrosis or infection, unspecified; L89.152 Pressure ulcer of sacral region, stage 2; E11.65 Type 2 diabetes mellitus with hyperglycemia; E83.42 Hypomagnesemia; E87.5 Hyperkalemia; N39.0 Urinary tract infection, site not specified; E11.40 Type 2 diabetes mellitus with diabetic neuropathy, unspecified; R26.81 Unsteadiness on feet; E27.40 Unspecified adrenocortical insufficiency; K21.9 Gastro-esophageal reflux disease without esophagitis; E78.1 Pure hyperglyceridemia; N17.0 Acute kidney failure with tubular necrosis; B18.2 Chronic viral hepatitis C; I95.89 Other hypotension; D63.8 Anemia in other chronic diseases classified elsewhere; R19.7 Diarrhea, unspecified; Z79.899 Other long term (current) drug therapy; Z88.8 Allergy status to other drugs, medicaments and biological substances
CPT/HCPCS: 36415; 70450; 71045; 80048; 80305; 81001; 82140; 82150; 82948; 83036; 83605; 83690; 83735; 83880; 84100; 84436; 84443; 84484; 85025; 85610; 85730; 87070; 87081; 87086; 87186; 93005; 97110; 97112; 97161-GP; 97530; G0482; J0696; J1885; J1953; J2001; J2060; J2270; J3475; J3480; J7030; J7060; Q0092; Q0163

== ENCOUNTER 2020-06-03 13:53 | Emergency (ER) | payer MEDICAID ==
[~2020-06-03] VITALS: Ht 152.4 cm; Wt 45.4 kg
[~2020-06-03 13:53] MED LIST: CARI350T PO; CHOL1POW67; CIPR500T4 PO; FLUD0.1T2 PO; GABA100C PO; GLIP10TA12 PO; KEP500 PO; LEVE1000 PO; LINA5TAB PO; METO-485 PO; OMEP20TA56 PO; PRO5 PO
--- NOTE | 2020-06-03 13:54 | NUR ---
Patient BIBA BLS, transferred to bed 1. RN evaluating the patient at bedside.
[2020-06-03 14:03] VITALS: BP 87/50
--- NOTE | 2020-06-03 14:03 | NUR ---
39 y/o female biba pt c/o mid abd pain x 3 days with nausea. Pt states she had urinary catheter placed 6 months ago. Minimal urine output last 3 days. Pt states urine has been "thick and pus like" for last 3 days. Skin warm, dry, intact. Hypotensive on arrival. Positioned for comfort. Placed on bedside monitor. medhx: seizures, DM, Hep C
--- NOTE | 2020-06-03 14:44 | NUR ---
Evangelista that patient arrived with removed at this time. Replaced with 16 azerbaijani evangelista catheter. Patient tolerated well
--- NOTE | 2020-06-03 14:50 | NUR ---
ELIO SALGUERO TEST DONE AND SENT TO LAB Addendum: 06/03/20 at 1505 by [id number] CALVIN ENTRY NOTES
--- NOTE | 2020-06-03 14:52 | NUR ---
Note alondra in EDM - 06/03/20 at 1503 by HEIDY RECEIVED PATIENT CACHECTIC BY FRANCISCO, REPORT FROM Nupur OSBORNEPRANAV BLIND INSTALLER, PLACED ON MONITOR IV ACCESS OBTAINED, PATIENT IS AWAKE, MINIMALLY VERBAL, SHARED THAT FAMILY OF 5 IN THE [place]OUTH 4 MONTHS AGO, HE TOOK A BUS TO [place] AND HAS BEEN HOMELESS, PATIENT IS DIABETIC WITH NO MEDICAL CARE. IV ACCESS OBTAINED, IVF NS 1 LITER INFUSING W/O, LABS DRAWN, LABELED.
[2020-06-03] MEDS: NACL 0.9% 1,000 ML IV ONE (15:02)
[2020-06-03] MEDS ORDERED: TAMS0.4C96 PO (15:08)
[2020-06-03 15:12] LABS: BASOPHILS # (AUTO) 0.1 K/uL (0.00-0.22); EOSINOPHILS # (AUTO) 0.1 K/uL (0-0.4); EOSINOPHILS % (AUTO) 1.4 % (0.0-4.0); HEMATOCRIT 35.9 % (36-48); HEMOGLOBIN 11.8 g/dL (12.0-16.0); LYMPHOCYTES # (AUTO) 1.9 K/uL (2.5-16.5); LYMPHOCYTES % (AUTO) 19.4 % (20.5-51.1); MEAN CORPUSCULAR HEMOGLOBIN 28 pg (27-31); MEAN CORPUSCULAR HGB CONC 33 g/dL (33-37); MEAN CORPUSCULAR VOLUME 85.7 fL (80-94); MONOCYTES # (AUTO) 0.6 K/uL (0.8-1.0); MONOCYTES % (AUTO) 6.4 % (1.7-9.3); NEUTROPHILS % (AUTO) 71.8 % (42.2-75.2); PLATELET COUNT (AUTO) 258 K/uL (140-450); RED BLOOD CELL COUNT(AUTO) 4.19 MIL/uL (4.20-5.40); RED CELL DISTRIBUTION WIDTH 13.4 % (11.6-13.7); WHITE BLOOD COUNT (AUTO) 9.7 K/uL (4.8-10.8)
[2020-06-03 15:33] LABS: PROTHROMBIN TIME 9.4 secs (10.8-13.4)
[2020-06-03 15:35] LABS: ALBUMIN 2.8 g/dL (3.4-5.0); CARBON DIOXIDE 25.5 mmol/L (21-32); CREATININE 2.6 mg/dL (0.6-1.3); POTASSIUM 5.5 mmol/L (3.5-5.1); TOTAL BILIRUBIN 1.4 mg/dL (0.0-1.0)
[2020-06-03] MEDS ORDERED: cefTRIAXone 1,000 MG in LIDOCAINE MPF 1% 2.1 ML IM ONE (15:45)
[2020-06-03] MEDS ORDERED: cefTRIAXone 1,000 MG VIAL ONE (15:51)
[2020-06-03 16:07] LABS: APPEARANCE,URINE CLOUDY (CLEAR); BILIRUBIN,URINE NEGATIVE (NEGATIVE); BLOOD, URINE 3+ (NEGATIVE); COLOR,URINE OTHER (YELLOW); LEUKOCYTE ESTERASE ,URINE 2+ (NEGATIVE); NITRITE, URINE NEGATIVE (NEGATIVE); PH,URINE 5.5 (5.0-9.0); UGLUCOSE NEGATIVE (NEGATIVE)
[2020-06-03 16:30] LABS: RBC,URINE >100 /HPF (0-5); WBC,URINE 16-25 (MOD) /HPF (0-5)
[2020-06-03] MEDS: SODIUM ZIRCONIUM CYCLOSILICATE 10 GM POWD.PACK PO ONE (17:03)
[2020-06-03] MEDS: INSULIN REGULAR, HUMAN 100 UNIT/ML VIAL IVP ONE (18:25)
--- NOTE | 2020-06-03 19:01 | NUR ---
TAXI CAB VOUCHER CALLED AND MADE ARRANGEMENTS. VOUCHER PROVIDED. PT STATES HER SON IS HOME AND CAN ASSIST HER WHEN SHE GETS HOME. TAXI ETA 30-1 HOUR.
--- NOTE | 2020-06-03 19:07 | NUR ---
Akiko cancelled. The patient's friend will pick her up.
[2020-06-03 19:20] VITALS: BP 87/50
--- NOTE | 2020-06-03 19:20 | NUR ---
Patient discharged with v/s stable. Written and verbal after care instructions given and explained. Patient alert, oriented and verbalized understanding of instructions. Wheel Chair Assisted with to car. All questions addressed prior to discharge. ID band removed. Patient advised to follow up with PMD. Rx of KAYEXALATE, MACROBID given. Patient educated on indication of medication including possible reaction and side effects. Opportunity to ask questions provided and answered.
== END 2020-06-03 19:20 | disposition home or self-care (01) ==
LOC: MED 13:53
DX: N39.0 Urinary tract infection, site not specified (principal); E87.5 Hyperkalemia; E11.9 Type 2 diabetes mellitus without complications; Z88.8 Allergy status to other drugs, medicaments and biological substances; Z79.899 Other long term (current) drug therapy
CPT/HCPCS: 36415; 80053; 81001; 83605; 84132; 85025; 85610; 87040; 87086; 93005; 96361; 96365; 96375; 99284; J0696; J1815

== ENCOUNTER 2022-03-20 14:38 | Emergency (ER) | payer OTHER, MEDICAID ==
[~2022-03-20] VITALS: Ht 157.5 cm; Wt 56.2 kg
[~2022-03-20 14:38] MED LIST changes: -CARI350T PO; -CHOL1POW67; -CIPR500T4 PO; -FLUD0.1T2 PO; -GABA100C PO; -GLIP10TA12 PO; -LEVE1000 PO; -LINA5TAB PO; -METO-485 PO; -OMEP20TA56 PO; -PRO5 PO; +TAMS0.4C96 PO
--- NOTE | 2022-03-20 14:38 | NUR ---
Joe cantu in ED - 03/20/22 at 1445 by MEDDM BIBA BLS TO ER BED 7
--- NOTE | 2022-03-20 14:38 | NUR ---
BIBA TO BED 07
[2022-03-20 14:40] VITALS: BP 132/94
--- NOTE | 2022-03-20 15:00 | NUR ---
41YO FEMALE PT [facility]A [facility]. PER [facility], BYSTANDERS STATE PT "WAS SHAKING FOR ABOUT A MINUTE " AND SLID OFF ELECTRIC WHEELCHAIR. AT ARRIVAL PT LETHARGIC, AAOX2 TO NAME AND PLACE, SPEAKING IN DELAYED MUMBLED SPEECH. AROUSABLE TO TOUCH. DENIES CHEST PAIN, N/V/D, FEVER OR CHILLS. ON BRAND MGR. HX:DENIES ALLERGIES: TORADOL
[2022-03-20 15:47] LABS: BASOPHILS # (AUTO) 0.1 K/uL (0.00-0.22); BASOPHILS % (AUTO) 0.9 % (0.0-2.0); EOSINOPHILS # (AUTO) 0.3 K/uL (0-0.4); EOSINOPHILS % (AUTO) 4.2 % (0.0-4.0); HEMATOCRIT 29.6 % (36-48); HEMOGLOBIN 9.7 g/dL (12.0-16.0); MEAN CORPUSCULAR HEMOGLOBIN 27 pg (27-31); MEAN CORPUSCULAR HGB CONC 33 g/dL (33-37); MEAN CORPUSCULAR VOLUME 81.9 fL (80-94); MONOCYTES # (AUTO) 0.3 K/uL (0.8-1.0); MONOCYTES % (AUTO) 3.3 % (1.7-9.3); NEUTROPHILS # (AUTO) 5.1 K/uL (1.8-7.7); NEUTROPHILS % (AUTO) 65.6 % (42.2-75.2); PLATELET COUNT (AUTO) 374 K/uL (140-450); RED BLOOD CELL COUNT(AUTO) 3.62 MIL/uL (4.20-5.40); RED CELL DISTRIBUTION WIDTH 17.1 % (11.6-13.7); WHITE BLOOD COUNT (AUTO) 7.8 K/uL (4.8-10.8)
[2022-03-20 16:15] LABS: ANION GAP 13.6 (8-16); ASPARTATE AMINOTRANSFERASE 21 U/L (15-37); CARBON DIOXIDE 25.9 mmol/L (21-32); CHLORIDE 103 mmol/L (98-107); CREATININE 2.4 mg/dL (0.6-1.3); GFR ARICAN-AMERICAN 28 mL/min (>90); GLUCOSE 137 mg/dL (74-106); POTASSIUM 5.5 mmol/L (3.5-5.1); SALICYLATE < 2.8 mg/dL (2.8-20.0); SODIUM SERUM 137 mmol/L (136-145); TOTAL BILIRUBIN 0.3 mg/dL (0.0-1.0); UREA NITROGEN, BLOOD 44 mg/dL (7-18)
[2022-03-20 16:16] LABS: ACETAMINOPHEN < 0.5 ug/ml (10-30)
[2022-03-20 16:27] LABS: APPEARANCE,URINE CLEAR (CLEAR); BILIRUBIN,URINE NEGATIVE (NEGATIVE); BLOOD, URINE 1+ (NEGATIVE); COLOR,URINE YELLOW (YELLOW); LEUKOCYTE ESTERASE ,URINE 3+ (NEGATIVE); NITRITE, URINE NEGATIVE (NEGATIVE); UGLUCOSE NEGATIVE (NEGATIVE)
[2022-03-20 16:37] LABS: BARBITURATE, URINE NEGATIVE ng/ml (NEG <=200); BENZODIAZEPINE, URINE NEGATIVE ng/mL (NEG <=200); CANNABINOID, URINE NEGATIVE ng/mL (NEG <=50); COCAINE, URINE POSITIVE ng/mL (NEG <=300); OPIATE, URINE NEGATIVE ng/mL (NEG <=2000); PHENCYCLIDINE SCREEN,URINE NEGATIVE ng/mL (NEG <=25)
[2022-03-20] MEDS ORDERED: MORPHINE SULFATE 4 MG/ML SYR IVP ONE (18:45)
--- NOTE | 2022-03-20 19:30 | NUR ---
REPORT GIVEN TO SHANDA NOYOLA. TRANSFER OF CARE AT THIS TIME
[2022-03-20] MEDS ORDERED: cefTRIAXone 1,000 MG VIAL ONE (19:38)
[2022-03-20] MEDS ORDERED: PHEN-1877 PO (20:21)
[2022-03-20] MEDS ORDERED: CEPH-588 PO (20:21)
[2022-03-20] MEDS ORDERED: HYDROcodone/APAP 5/325 MG 1 TAB TAB PO ONE (20:50)
[2022-03-20] MEDS ORDERED: HYDROcodone/APAP 5/325 MG 1 TAB TAB ONE (20:53)
[2022-03-20 20:55] VITALS: BP 118/63
--- NOTE | 2022-03-20 21:06 | NUR ---
FAMILY AT BEDSIDE
--- NOTE | 2022-03-20 21:15 | NUR ---
Patient discharged with v/s stable. Written and verbal after care instructions given and explained. Patient alert, oriented and verbalized understanding of instructions. Wheel Chair Assisted with to car. All questions addressed prior to discharge. ID band removed. Patient advised to follow up with PMD. Rx of KEFLEX AND PYRIDIUM given. Patient educated on indication of medication including possible reaction and side effects. Opportunity to ask questions provided and answered.
--- NOTE | 2022-03-20 23:35 | NUR ---
Note charlasheela in EDM - 03/20/22 at 2336 by [id number] Patient discharged with v/s stable. Written and verbal after care instructions given and explained. Patient alert, oriented and verbalized understanding of instructions. Wheel Chair Assisted with to car. All questions addressed prior to discharge. ID band removed. Patient advised to follow up with PMD. Rx of KEFLEX AND PYRIDIUM given. Patient educated on indication of medication including possible reaction and side effects. Opportunity to ask questions provided and answered.
== END 2022-03-20 21:15 | disposition home or self-care (01) ==
LOC: MED 14:38
DX: R41.82 Altered mental status, unspecified (principal); Z20.822 Contact with and (suspected) exposure to COVID-19; N39.0 Urinary tract infection, site not specified; E11.9 Type 2 diabetes mellitus without complications; Z79.4 Long term (current) use of insulin; Z79.899 Other long term (current) drug therapy; Z88.8 Allergy status to other drugs, medicaments and biological substances
CPT/HCPCS: 36415; 70450; 71045; 80053; 80305; 81001; 81025; 82550; 84484; 85025; 87086; 87426; 93005; 96365; 99285; G0480; G0482; J0696; J2270

== ENCOUNTER 2022-04-18 15:00 | Inpatient (IN) | payer OTHER, MEDICAID ==
[~2022-04-18] VITALS: Ht 152.4 cm; Wt 39.9 kg
[~2022-04-18 15:00] MED LIST changes: +CEPH-588 PO; +PHEN-1877 PO
--- NOTE | 2022-04-18 15:00 | NUR ---
ZULEIMA ALS TO ER BED 8
[2022-04-18] MEDS ORDERED: levETIRAcetam 1,000 MG in NACL 0.9% 100 ML IV ONE (15:25)
[2022-04-18 15:50] LABS: BASOPHILS # (AUTO) 0.1 K/uL (0.00-0.22); BASOPHILS % (AUTO) 0.7 % (0.0-2.0); EOSINOPHILS # (AUTO) 0.1 K/uL (0-0.4); EOSINOPHILS % (AUTO) 0.7 % (0.0-4.0); HEMATOCRIT 23.2 % (36-48); HEMOGLOBIN 7.5 g/dL (12.0-16.0); LYMPHOCYTES # (AUTO) 1.3 K/uL (2.5-16.5); LYMPHOCYTES % (AUTO) 11.9 % (20.5-51.1); MEAN CORPUSCULAR HEMOGLOBIN 27 pg (27-31); MEAN CORPUSCULAR HGB CONC 32 g/dL (33-37); MEAN CORPUSCULAR VOLUME 83.2 fL (80-94); MONOCYTES # (AUTO) 0.3 K/uL (0.8-1.0); NEUTROPHILS # (AUTO) 9.5 K/uL (1.8-7.7); NEUTROPHILS % (AUTO) 83.7 % (42.2-75.2); PLATELET COUNT (AUTO) 454 K/uL (140-450); RED BLOOD CELL COUNT(AUTO) 2.79 MIL/uL (4.20-5.40); RED CELL DISTRIBUTION WIDTH 18.4 % (11.6-13.7); WHITE BLOOD COUNT (AUTO) 11.3 K/uL (4.8-10.8)
[2022-04-18 15:51] VITALS: BP 85/62
--- NOTE | 2022-04-18 16:06 | NUR ---
PATIENT PRESENTS TO ED S/P SZ . CUFFING MACHINE OPERATOR REPORTS PT WITH PMH OF SZ, HTN AND FAILURE TO THRIVE. PER CUFFING MACHINE OPERATOR THEY ARE OFTEN CALLED TO THIS HOME, MAKENZIE LIVES WITH HER SON . DENIES N/V/D; SKIN IS PINK/WARM/DRY; AAOX4; PATIENT IS BEDBOUND AND USES A DIAPER. PRESENTS WITH PRODUCTIVE COUGH; HR EVEN AND REGULAR; PATIENT STATES PAIN OF 0/10 AT THIS TIME; PATIENT POSITIONED FOR COMFORT; HOB ELEVATED; BEDRAILS UP X2; WITH SEIZURE PRECAUTIONS IN PLACE. BED DOWN. ER MD MADE AWARE OF PT STATUS.
[2022-04-18 16:15] LABS: ANION GAP 16.7 (8-16); CARBON DIOXIDE 13.5 mmol/L (21-32); CREATININE 2.9 mg/dL (0.6-1.3); POTASSIUM 3.2 mmol/L (3.5-5.1)
[2022-04-18] MEDS ORDERED: NACL 0.9% 2,000 ML IV ONE (16:20)
[2022-04-18] MEDS ORDERED: MORPHINE SULFATE 4 MG/ML SYR IVP ONE (16:50)
[2022-04-18] MEDS: NACL 0.9% 1,000 ML IV SCH (17:15)
--- NOTE | 2022-04-18 18:09 | NUR ---
PATIENT TO BE ADMITTED WITH RAMONA, PER PATIENT SHE IS AWARE SHE HAS KIDNEY FAILURE BUT HAS NOT FOLLOWED UP WITH HER PMD
--- NOTE | 2022-04-18 18:50 | NUR ---
PATIENT REQUESTING FOR MORE PAIN MEDICATION. PATIENT EDUCATED ON SAFE ADMINISTRATION OF PAIN MEDS. PATIENT VERBALIZED UNDERSTANDING
--- NOTE | 2022-04-18 19:21 | NUR ---
SPOKE TO MOM (RENUKA [phone]), MOM IS UNKNOWLEDGEABLE OF PATIENT'S DAILY MEDICATIONS. SPOKE TO SON (DARREL [phone]), SON STATES HE IS UNABLE TO PROVIDE LIST OF MEDS AT THIS TIME BUT WILL DROP OFF MED LIST TOMORROW
--- NOTE | 2022-04-18 19:24 | NUR ---
REPORT GIVEN TO JAZMÍN UMANA FOR CONTINUITY OF CARE.
--- NOTE | 2022-04-18 19:40 | NUR ---
Patient will be admitted to care of . Admited to [facility]. Will go to room 106. Belongings list completed. Report to ALMITA NOYOLA.
[2022-04-18 20:30] VITALS: BP 90/54
--- NOTE | 2022-04-18 20:30 | NUR ---
Admitted from ER TO MED SURGICAL UNIT, with chief complaint of SEIZURE, 41 y/o ,Female, Cooperative, AWAKE, ALERT, OX3 WITH PERIODS OF FORGETFULNESS. IV SALINE LOCK AT THE RIGHT IJ, PATENT AND INTACT. LUNGS WITH RHONCHI ON BILATERAL AUSCULTATION. ABDOMEN SOFT WITH POSITIVE BOWEL SOUNDS ON ALL QUADRANTS. PATIENT IS WHEELCHAIR BOUND, WITH BILATERAL LOWER EXTREMITIES WEAKNESS. HEAD TO TOE ASSESSMENT DONE WITH JAZMÍN MOYA. SKIN IS INTACT. PATIENT IS INCONTINENT. COMPLAINT OF GENERALIZED BODY PAIN, 5/10 WILL MEDICATE PER MD ORDER. MADE COMFORTABLE IN BED WITH PILLOWS FOR COMFORT AND WARM BLANKETS. oriented to call light, bed, phone,television, bathroom, smoking policy,visiting hours, procedures, ID bracelet on. Belongings list checked.
--- NOTE | 2022-04-18 20:35 | NUR ---
DR. LOOMIS CAME TO SEE THE PATIENT. MADE AWARE OF PATIENT LOW BP. WILL ORDER NS BOLUS.
[2022-04-18] MEDS ORDERED: guaiFENesin DM 200/20 MG-10 ML 10 ML UDC PO PRN (20:55)
[2022-04-18] MEDS ORDERED: POTASSIUM CHLORIDE 10 MEQ TABER PO PRN (20:55)
[2022-04-18] MEDS ORDERED: NACL 0.9% 1,000 ML IV SCH (20:55)
[2022-04-18] MEDS ORDERED: ZOLPIDEM 5 MG TAB PO PRN (20:55)
[2022-04-18] MEDS ORDERED: DOCUSATE SODIUM 100 MG GELCAP PO PRN (20:55)
[2022-04-18] MEDS ORDERED: ACETAMINOPHEN 325 MG TAB PO PRN (20:55)
[2022-04-18] MEDS ORDERED: ONDANSETRON 4 MG/2 ML VIAL IM/IVP PRN (20:55)
[2022-04-18] MEDS: NACL 0.9% 1,500 ML IV SCH ×2 (21:00→22:31)
[2022-04-18] MEDS ORDERED: LORazepam 2 MG/ML VIAL IVP PRN (21:00)
--- NOTE | 2022-04-18 21:30 | NUR ---
ALWAYS REQUESTING FOR SOMETHING TO EAT. JUICES, PUDDING AND SANDWICH GIVEN REQUESTED.
[2022-04-18 22:18] LABS: ALBUMIN 2.4 g/dL (3.4-5.0); ANION GAP 16.9 (8-16); CARBON DIOXIDE 14.5 mmol/L (21-32); CREATININE 2.6 mg/dL (0.6-1.3); POTASSIUM 3.4 mmol/L (3.5-5.1); PROTHROMBIN TIME 10.1 secs (10.8-13.4); TOTAL BILIRUBIN 0.2 mg/dL (0.0-1.0)
[2022-04-18 22:30] LABS: CHOL/HDL RATIO 2.4 (1-4.5); MAGNESIUM 1.4 mg/dL (1.8-2.4); PHOSPHORUS 6.2 mg/dL (2.5-4.9); THYROID STIMULATING HORMONE 2.15 uIU/mL (0.34-3.74)
--- NOTE | 2022-04-18 22:56 | NUR ---
NS 1 LITER BOLUS STARTED PER MD ORDER TO INCREASE B/P.
--- NOTE | 2022-04-18 23:00 | NUR ---
TRIED TO OBTAINED SPECIMEN FOR UA TEST USING BEDPAN BUT PATIENT WANTS TO BE ALWAYS ON HER RIGHT SIDE, FEELS VERY UNCOMFORTABLE LYING SUPINE.
--- NOTE | 2022-04-19 | NUR ---
SLEEPING ON HER RIGHT SIDE COMFORTABLY IN BED.
[2022-04-19] MEDS ORDERED: cefTRIAXone 1,000 MG VIAL ONE (00:26)
[2022-04-19] MEDS: NACL 0.9% 1,000 ML IV SCH (03:29)
[2022-04-19] MEDS ORDERED: POTASSIUM CHLORIDE 10 MEQ TABER PO ONE ×2 (04:55→12:40)
--- NOTE | 2022-04-19 05:00 | NUR ---
STRAIGHT CATH DONE TO OBTAINED UA FOR DRUG SCREEN AND TEST.
--- NOTE | 2022-04-19 05:30 | NUR ---
INFORMED DR. ANDERSON, PT BP - 86/53 RIGHT SIDE, LEFT SIDE - 80/45, HR - 83. ORDERED NS 1 LITER BOLUS.
[2022-04-19 05:57] VITALS: BP 91/56
[2022-04-19] MEDS ORDERED: NACL 0.9% 1,000 ML IV SCH ×2 (06:00→07:40)
--- NOTE | 2022-04-19 06:00 | NUR ---
ORDERED BOLUS OF NS 1 LITER BUT DISCONTINUED. WILL ENDORSE TO AM NURSE FOR FOLLOW UP
[2022-04-19 06:32] LABS: APPEARANCE,URINE CLOUDY (CLEAR); COLOR,URINE AMBER (YELLOW)
[2022-04-19 06:33] LABS: LEUKOCYTE ESTERASE ,URINE 4+ (NEGATIVE); NITRITE, URINE NEGATIVE (NEGATIVE)
[2022-04-19 06:34] LABS: PH,URINE 6.5 (5.0-9.0)
[2022-04-19 06:35] LABS: BILIRUBIN,URINE NEGATIVE (NEGATIVE); BLOOD, URINE 3+ (NEGATIVE)
[2022-04-19 06:36] LABS: UGLUCOSE NEGATIVE (NEGATIVE)
[2022-04-19 06:39] LABS: OTHER CASTS, URINE None Seen /LPF (None Seen); RBC,URINE 11-20 (MOD) /HPF (0-5); WBC,URINE 16-25 (MOD) /HPF (0-5)
[2022-04-19 08:00] VITALS: BP 98/67
[2022-04-19 09:39] LABS: BARBITURATE, URINE NEGATIVE ng/ml (NEG <=200); BENZODIAZEPINE, URINE NEGATIVE ng/mL (NEG <=200); CANNABINOID, URINE NEGATIVE ng/mL (NEG <=50); COCAINE, URINE POSITIVE ng/mL (NEG <=300); OPIATE, URINE POSITIVE ng/mL (NEG <=2000); PHENCYCLIDINE SCREEN,URINE NEGATIVE ng/mL (NEG <=25)
[2022-04-19] MEDS: PANTOPRAZOLE 40 MG TABEC PO SCH (09:49)
[2022-04-19] MEDS: levETIRAcetam 500 MG TAB PO SCH ×2 (09:50→20:10)
--- NOTE | 2022-04-19 10:38 | NUR ---
PATIENT HAS BEEN SCREENED AND CATEGORIZED HIGH NUTRITION RISK. PATIENT WILL BE SEEN WITHIN 1-[address] RECEIVED REFERRAL REQUEST BMI <18.5 REVIEWED BY KIKO NGO RD
[2022-04-19] MEDS: HYDROcodone/APAP 7.5/325 MG 1 TAB PO PRN ×2 (10:49→19:59)
--- NOTE | 2022-04-19 12:27 | NUR ---
P.T. NOTES HOLD P.T. EVAL DUE TO LOW BP; WILL FF UP TOMORROW IF ABLE.
[2022-04-19] MEDS ORDERED: MAG SULF 2000 MG/WATER PREMIX 50 ML IV SCH (13:15)
[2022-04-19] MEDS: MIDODRINE 5 MG TAB PO SCH ×2 (13:49→19:16)
[2022-04-19] MEDS: SODIUM BICARBONATE 8.4% 100 MEQ in DEXTROSE 5% 1,000 ML IV SCH (14:00)
--- NOTE | 2022-04-19 16:31 | NUR ---
DC PLANNING SW ATTEMPTED TO MEET WITH PT AT BEDSIDE TO COMPLETE ASSESSMENT HOWEVER, PT HEAVILY SLEEPING. PT OUTREACHED TO PTS EMERGENCY CONTACT, DARREL ELLSI, TO GATHER COLLATERAL INFORMATION. DARREL REPORTS PT RESIDES IN A SINGLE STORY HOME WITH HIM AT THE ADDRESS LISTED ON FILE. DARREL IDENTIFIES HIMSELF, AND RENUKA ELLIS, MOM, PTS EMERGENCY CONTACTS. DARREL REPORTS PT MEETS WITH PCP, DR. WELSH, MONTHLY. PT IS REPORTED TO BE MEDICATION COMPLIANT AND [facility] [place] WHEN NEED[facility]. PT IS REPORTED TO BE PRIMARILY WC BOUND AND REQUIRES ASSISTANCE WITH ADL'S THAT FAMILY TYPICALLY AID WITH. PT IS CURRENTLY IN THE PROCESS OF OBTAINING IHSS HOURS AND HAS AN APPT FOR EVALUATION 04/19. DARREL DENIES PT HAS MH/SIERRA HX. PT IS REPORTED TO HAVE DIABETES THAT IS WELL MANAGED. DARREL REPORTS ADEQUATE FOOD IN THE HOME AND RECEIVES [employer] BENEFITS OF 300 MONTHLY. DARREL REPORTS DC PLAN IS FOR PT TO RETURN HOME, HE WILL PROVIDE TRANSPORTATION WHEN PT IS MEDICALLY STABLE. Addendum: 04/19/22 at 1632 by Zeferino BAILEY Amended: Links added.
--- NOTE | 2022-04-19 16:47 | NUR ---
04/19/22 RD INITIAL ASSESSMENT COMPLETED PLEASE REFER TO NUTRITION ASSESSMENT UNDER CARE ACTIVITY FOR ESTIMATED NUTRITIONAL NEEDS. 1. CONTINUE REGULAR DIET, TOLERATED. 2. RECOMMEND ENSURE BID FOR NUTRITION SUPPORT. 3. DOUGH SHEETER PROVIDED NUTRITION EDUCATION FOR GENERAL HEALTHY EATING. 4. MONITOR PO INTAKE, LAB VALUES, WEIGHT, AND GI. 5. RD TO FOLLOW-UP 3-5 DAYS, MODERATE RISK REVIEWED BY KIKO NGO RD
[2022-04-19 19:51] LABS: BASOPHILS # (AUTO) 0.1 K/uL (0.00-0.22); EOSINOPHILS # (AUTO) 0.3 K/uL (0-0.4); EOSINOPHILS % (AUTO) 2.8 % (0.0-4.0); HEMATOCRIT 23.2 % (36-48); HEMOGLOBIN 7.4 g/dL (12.0-16.0); LYMPHOCYTES # (AUTO) 1.7 K/uL (2.5-16.5); LYMPHOCYTES % (AUTO) 16.1 % (20.5-51.1); MEAN CORPUSCULAR HEMOGLOBIN 27 pg (27-31); MEAN CORPUSCULAR HGB CONC 32 g/dL (33-37); MEAN CORPUSCULAR VOLUME 85.2 fL (80-94); MONOCYTES # (AUTO) 0.4 K/uL (0.8-1.0); MONOCYTES % (AUTO) 3.9 % (1.7-9.3); NEUTROPHILS # (AUTO) 8.1 K/uL (1.8-7.7); NEUTROPHILS % (AUTO) 76.2 % (42.2-75.2); PLATELET COUNT (AUTO) 463 K/uL (140-450); RED BLOOD CELL COUNT(AUTO) 2.72 MIL/uL (4.20-5.40); RED CELL DISTRIBUTION WIDTH 19.5 % (11.6-13.7); WHITE BLOOD COUNT (AUTO) 10.6 K/uL (4.8-10.8)
[2022-04-19 20:00] VITALS: BP 94/63
[2022-04-19 20:34] LABS: ANION GAP 17.3 (8-16); CREATININE 2.8 mg/dL (0.6-1.3); POTASSIUM 5.3 mmol/L (3.5-5.1)
[2022-04-20] MEDS: SODIUM BICARBONATE 8.4% 100 MEQ in DEXTROSE 5% 1,000 ML IV SCH ×3 (01:06→21:33)
[2022-04-20] MEDS: HYDROcodone/APAP 7.5/325 MG 1 TAB PO PRN ×5 (01:08→23:54)
--- NOTE | 2022-04-20 02:38 | NUR ---
PATIENT STABLE VITALS SIGNS IN NORMAL LIMITS PAIN MED WAS GIVING WE ADD HER SON CONTACT DARREL ELLIS TELEPHONE [phone]
[2022-04-20 04:00] VITALS: BP 94/63
[2022-04-20] MEDS: MIDODRINE 5 MG TAB PO SCH ×3 (05:14→18:13)
[2022-04-20 06:59] LABS: BASOPHILS # (AUTO) 0.1 K/uL (0.00-0.22); BASOPHILS % (AUTO) 0.7 % (0.0-2.0); EOSINOPHILS # (AUTO) 0.2 K/uL (0-0.4); EOSINOPHILS % (AUTO) 2.7 % (0.0-4.0); HEMATOCRIT 21.7 % (36-48); HEMOGLOBIN 7.2 g/dL (12.0-16.0); LYMPHOCYTES # (AUTO) 2.1 K/uL (2.5-16.5); LYMPHOCYTES % (AUTO) 23.9 % (20.5-51.1); MEAN CORPUSCULAR HEMOGLOBIN 28 pg (27-31); MEAN CORPUSCULAR HGB CONC 33 g/dL (33-37); MEAN CORPUSCULAR VOLUME 84.1 fL (80-94); MONOCYTES # (AUTO) 0.5 K/uL (0.8-1.0); MONOCYTES % (AUTO) 5.4 % (1.7-9.3); NEUTROPHILS # (AUTO) 5.9 K/uL (1.8-7.7); NEUTROPHILS % (AUTO) 67.3 % (42.2-75.2); PLATELET COUNT (AUTO) 440 K/uL (140-450); RED BLOOD CELL COUNT(AUTO) 2.58 MIL/uL (4.20-5.40); RED CELL DISTRIBUTION WIDTH 18.9 % (11.6-13.7); WHITE BLOOD COUNT (AUTO) 8.8 K/uL (4.8-10.8)
[2022-04-20 07:52] LABS: ANION GAP 17.9 (8-16); CARBON DIOXIDE 11.9 mmol/L (21-32); CREATININE 2.8 mg/dL (0.6-1.3); POTASSIUM 4.8 mmol/L (3.5-5.1)
[2022-04-20 08:07] LABS: T4 (THYROXINE) 5.6 ug/dL (4.5-12.0)
[2022-04-20] MEDS: PANTOPRAZOLE 40 MG TABEC PO SCH (08:36)
[2022-04-20] MEDS: levETIRAcetam 500 MG TAB PO SCH ×2 (08:36→21:32)
[2022-04-20 12:00] VITALS: BP 95/61
--- NOTE | 2022-04-20 14:00 | NUR ---
16 INDONESIAN ALVAREZ CATHETER INSERTED WITH NO COMPLICATIONS CLOUDY URINE NOTED WILL CONTINUE TO MONITOR AND ASSESS
[2022-04-20 19:48] VITALS: BP 110/62
--- NOTE | 2022-04-21 01:37 | NUR ---
PATIENT STABLE VITALS SIGNS IN NORMAL LIMITS ASKED FOR PAIN MEDICATION AND I GAVE 1 TBLET OF NORCO
[2022-04-21 03:46] VITALS: BP 106/55
[2022-04-21] MEDS: HYDROcodone/APAP 7.5/325 MG 1 TAB PO PRN ×2 (05:25→15:50)
[2022-04-21] MEDS: MIDODRINE 5 MG TAB PO SCH ×3 (06:20→18:41)
--- NOTE | 2022-04-21 06:56 | NUR ---
PATIENT STABLE VITALS SIGNS IN NORMAL LIMITS NOT COMPLAINING OF PAIN AT THIS TIME
--- NOTE | 2022-04-21 07:20 | NUR ---
RECEIVED REPORT FROM CHARCOAL UNLOADER NURSE DALILA DELGADO FOR CONTINUITY OF CARE. PT SLEEPING, EASILY AROUSABLE BY VERBAL STIMULI. RESPIRATIONS EVEN AND UNLABORED ON RA. NO DISTRESS NOTED. ALVAREZ CATHETER, INTACT. IV SITE ON RFA G22 INFUSING SODIUM BICARB 84% 100 MEQ IN D5% AT 100 ML/HR. CALL LIGHT WITHIN REACH. SAFETY AND SZ PRECAUTIONS IN PLACE.
[2022-04-21 07:22] LABS: BASOPHILS # (AUTO) 0.1 K/uL (0.00-0.22); BASOPHILS % (AUTO) 1.1 % (0.0-2.0); EOSINOPHILS # (AUTO) 0.2 K/uL (0-0.4); EOSINOPHILS % (AUTO) 3.1 % (0.0-4.0); HEMOGLOBIN 7.6 g/dL (12.0-16.0); LYMPHOCYTES # (AUTO) 1.7 K/uL (2.5-16.5); LYMPHOCYTES % (AUTO) 23.1 % (20.5-51.1); MEAN CORPUSCULAR HEMOGLOBIN 28 pg (27-31); MEAN CORPUSCULAR HGB CONC 33 g/dL (33-37); MEAN CORPUSCULAR VOLUME 83.9 fL (80-94); MONOCYTES # (AUTO) 0.3 K/uL (0.8-1.0); MONOCYTES % (AUTO) 3.5 % (1.7-9.3); NEUTROPHILS # (AUTO) 5.2 K/uL (1.8-7.7); NEUTROPHILS % (AUTO) 69.2 % (42.2-75.2); PLATELET COUNT (AUTO) 446 K/uL (140-450); RED BLOOD CELL COUNT(AUTO) 2.75 MIL/uL (4.20-5.40); RED CELL DISTRIBUTION WIDTH 19.8 % (11.6-13.7); WHITE BLOOD COUNT (AUTO) 7.5 K/uL (4.8-10.8)
[2022-04-21 07:33] LABS: ANION GAP 14.6 (8-16); POTASSIUM 5.6 mmol/L (3.5-5.1)
[2022-04-21 08:00] VITALS: BP 118/73
[2022-04-21] MEDS: PANTOPRAZOLE 40 MG TABEC PO SCH (09:14)
[2022-04-21] MEDS: levETIRAcetam 500 MG TAB PO SCH ×2 (09:14→20:15)
--- NOTE | 2022-04-21 09:16 | NUR ---
ADMINISTERED DUE MEDS. PT TOLERATED WELL.
[2022-04-21] MEDS: SODIUM BICARBONATE 8.4% 100 MEQ in DEXTROSE 5% 1,000 ML IV SCH ×2 (10:00→20:40)
--- NOTE | 2022-04-21 10:50 | NUR ---
RECEIVED CRITICAL LAB VALUE FROM LAB. URINE CULTURE - +ECOLI ESBL. AWARE. PLACED PT ON CONTACT PRECAUTION.
--- NOTE | 2022-04-21 10:52 | NUR ---
NONADMIN GEOVANNY MEDICATION DUE O IV FLUIDS CURRENTLY BEING RAN
[2022-04-21] MEDS ORDERED: SODIUM ZIRCONIUM CYCLOSILICATE 10 GM POWD.PACK PO SCH (11:30)
--- NOTE | 2022-04-21 12:09 | NUR ---
ADMINISTERED DUE MEDS. BP 100/80. LOKELMA GIVEN FOR POTASSIUM 5.6.
--- NOTE | 2022-04-21 15:50 | NUR ---
PT COMPLAINED OF BACK PAIN. 09/22. PRN NORCO GIVEN BY NURSE SHARON. WILL CONTINUE RE-ASSESS PAIN.
[2022-04-21 16:00] VITALS: BP 148/87
--- NOTE | 2022-04-21 18:41 | NUR ---
NON-ADMIT MIDODRINE. BP 130/83. WILL CONTINUE TO MONITOR.
--- NOTE | 2022-04-21 19:25 | NUR ---
ENDORSED PT TO HOME ENERGY RATER NURSE FOR CONTINUITY OF CARE. ALL NEEDS MET THROUGHOUT SHIFT. PT IS IN STABLE CONDITION.
--- NOTE | 2022-04-21 19:30 | NUR ---
RECEIVED PATIENT LYING ON BED, HOB ELEVATED, IS AWAKE, ALERT AND ORIENTED, DENIES PAIN, NO SIGNS OF DISTRESS NOTED. IV SITE ON RIGHT FOREARM, PATENT AND INTACT RUNNING SODIUM BICARBONATE 8.4% 100 MEQ IN D5 100ML/HR. CALL LIGHT WITHIN REACH.
[2022-04-21] MEDS ORDERED: PIPERACILLIN/TAZOBACTAM 2.25 GM VIAL IV ONE (20:11)
[2022-04-21] MEDS: PIPERACILLIN/TAZOBACTAM 2.25 GM in DEXTROSE 5% 50 ML IV SCH (20:19)
--- NOTE | 2022-04-21 20:20 | NUR ---
DUE MEDICATIONS GIVEN ORDERED. SAFETY PRECAUTIONS IN PLACE, CALL LIGHT WITHIN REACH, BED IN LOW AND LOCKED POSITION. WILL CONTINUE TO MONITOR THE PATIENT.
--- NOTE | 2022-04-22 01:55 | NUR ---
CHECK ON PATIENT. PATIENT IS ASLEEP, NO SIGNS OF PAIN/DISCOMFORT NOTED, BREATHING EVEN AND NON LABORED. CALL LIGHT WITHIN REACH, SEIZURE PRECAUTIONS MAINTAINED, BED IN LOW AND LOCKED POSITION. WILL CONTINUE TO MONITOR THE PATIENT.
[2022-04-22] MEDS: HYDROcodone/APAP 7.5/325 MG 1 TAB PO PRN ×4 (03:45→20:54)
--- NOTE | 2022-04-22 03:45 | NUR ---
PATIENT C/O 6/10 PAIN ON LOWER BACK, PRN PAIN MEDICATION GIVEN ORDERED. BP 121/69. SAFETY PRECAUTIONS IN PLACE. WILL CONTINUE TO MONITOR THE PATIENT.
[2022-04-22 04:00] VITALS: BP 121/61
[2022-04-22] MEDS ORDERED: PIPERACILLIN/TAZOBACTAM 3.375 GM VIAL IV ONE (04:11)
[2022-04-22] MEDS: PIPERACILLIN/TAZOBACTAM 2.25 GM in DEXTROSE 5% 50 ML IV SCH ×3 (04:26→22:10)
[2022-04-22] MEDS: MIDODRINE 5 MG TAB PO SCH ×3 (07:03→19:00)
--- NOTE | 2022-04-22 07:05 | NUR ---
SCHEDULED PROAMATINE 10MG GIVEN ORDERED. BP 109/60.
--- NOTE | 2022-04-22 07:21 | NUR ---
ENDORSED PATIENT TO DAY NURSE FOR CONTINUITY OF CARE. NEEDS MET THROUGHOUT THE SHIFT. PATIENT IS IN STABLE CONDITION.
--- NOTE | 2022-04-22 07:47 | NUR ---
04/22/2022 0800: RECEIVED FROM PM NURSE. PT RESTING IN BED, NO ACUTE DISTRESS NOTED AT THIS TIME.[id number].
[2022-04-22 07:48] LABS: BASOPHILS # (AUTO) 0.1 K/uL (0.00-0.22); BASOPHILS % (AUTO) 1.2 % (0.0-2.0); EOSINOPHILS # (AUTO) 0.2 K/uL (0-0.4); EOSINOPHILS % (AUTO) 2.3 % (0.0-4.0); LYMPHOCYTES # (AUTO) 1.7 K/uL (2.5-16.5); LYMPHOCYTES % (AUTO) 24.7 % (20.5-51.1); MEAN CORPUSCULAR HEMOGLOBIN 27 pg (27-31); MEAN CORPUSCULAR HGB CONC 33 g/dL (33-37); MEAN CORPUSCULAR VOLUME 82.5 fL (80-94); MONOCYTES # (AUTO) 0.3 K/uL (0.8-1.0); NEUTROPHILS # (AUTO) 4.6 K/uL (1.8-7.7); NEUTROPHILS % (AUTO) 66.8 % (42.2-75.2); PLATELET COUNT (AUTO) 391 K/uL (140-450); RED CELL DISTRIBUTION WIDTH 19.9 % (11.6-13.7); WHITE BLOOD COUNT (AUTO) 6.9 K/uL (4.8-10.8)
[2022-04-22] MEDS: PANTOPRAZOLE 40 MG TABEC PO SCH (08:05)
[2022-04-22] MEDS: levETIRAcetam 500 MG TAB PO SCH ×2 (08:05→20:52)
[2022-04-22 08:12] LABS: ANION GAP 11.9 (8-16); CARBON DIOXIDE 21.7 mmol/L (21-32); CREATININE 2.7 mg/dL (0.6-1.3); POTASSIUM 3.6 mmol/L (3.5-5.1)
[2022-04-22 09:04] LABS: HEMATOCRIT 19.8 % (36-48); HEMOGLOBIN 6.5 g/dL (12.0-16.0)
[2022-04-22 12:00] VITALS: BP 131/73
[2022-04-22] MEDS: SODIUM BICARBONATE 8.4% 100 MEQ in DEXTROSE 5% 1,000 ML IV SCH ×2 (12:25→19:00)
--- NOTE | 2022-04-22 19:35 | NUR ---
ENDORSED PT TO PM JAZMÍN LIZARRAGA.
--- NOTE | 2022-04-22 19:36 | NUR ---
WITH SZ PRECAUTIONS IN PLACE.
--- NOTE | 2022-04-22 19:36 | NUR ---
RECEIVED REPORT FROM DAY SHIFT NURSE KASHIF FOR CONTINUITY OF CARE. PT AWAKE IN BED. HAD 1PRBC BLOOD TRANSFUSION ENDED 1800. RESPIRATIONS EVEN AND UNLABORED ON RA. NO DISTRESS NOTED. NO COMPLAINTS OF PAIN. IV SITE ON LFA 22G, INFUSING SODIUM BICARB 8.4% 100 MEQ IN D5. WITH ALVAREZ CATHETER INTACT. CALL LIGHT WITHIN REACH. SAFETY PRECAUTIONS IN PLACE.
[2022-04-22 20:00] VITALS: BP 130/76
--- NOTE | 2022-04-22 20:58 | NUR ---
ADMINISTERED DUE MEDS. PT COMPLAINED OF BACK PAIN 09/22. PRN PAIN MED GIVEN MD ORDERED.
[2022-04-22 22:09] LABS: HEMATOCRIT 27.7 % (36-48); HEMOGLOBIN 9.2 g/dL (12.0-16.0)
--- NOTE | 2022-04-22 23:00 | NUR ---
NOTED SACRAL AND RIGHT HIP OPEN WOUND. PHOTOS TAKEN AND FILED ON PT'S CHART. WOUND CONSULT ORDERED PER MD.
--- NOTE | 2022-04-23 00:15 | NUR ---
PT HAD BM. COLLECTED STOOL SAMPLE FOR OCCULT BLOOD AND SENT TO LAB.
[2022-04-23 04:00] VITALS: BP 142/90
[2022-04-23] MEDS: HYDROcodone/APAP 7.5/325 MG 1 TAB PO PRN ×4 (04:33→21:16)
--- NOTE | 2022-04-23 04:43 | NUR ---
V/S TAKEN. DRAINED 950CC CLOUDY, YELLOW URINE. PT COMPLAINED OF BACK PAIN 09/22. PRN PAIN MED GIVEN. CLEANED AND CHANGED PT DIAPER. PT REMAINED CLEAN AND DRY.
[2022-04-23] MEDS: PIPERACILLIN/TAZOBACTAM 2.25 GM in DEXTROSE 5% 50 ML IV SCH ×3 (05:00→21:00)
[2022-04-23] MEDS: SODIUM BICARBONATE 8.4% 100 MEQ in DEXTROSE 5% 1,000 ML IV SCH (05:09)
[2022-04-23 06:37] LABS: BASOPHILS # (AUTO) 0.1 K/uL (0.00-0.22); EOSINOPHILS # (AUTO) 0.2 K/uL (0-0.4); EOSINOPHILS % (AUTO) 2.6 % (0.0-4.0); HEMATOCRIT 26.8 % (36-48); HEMOGLOBIN 8.9 g/dL (12.0-16.0); LYMPHOCYTES % (AUTO) 25.6 % (20.5-51.1); MEAN CORPUSCULAR HEMOGLOBIN 27 pg (27-31); MEAN CORPUSCULAR HGB CONC 33 g/dL (33-37); MEAN CORPUSCULAR VOLUME 82.6 fL (80-94); MONOCYTES # (AUTO) 0.4 K/uL (0.8-1.0); MONOCYTES % (AUTO) 5.8 % (1.7-9.3); PLATELET COUNT (AUTO) 337 K/uL (140-450); RED BLOOD CELL COUNT(AUTO) 3.25 MIL/uL (4.20-5.40); RED CELL DISTRIBUTION WIDTH 18.2 % (11.6-13.7); WHITE BLOOD COUNT (AUTO) 7.7 K/uL (4.8-10.8)
[2022-04-23] MEDS: MIDODRINE 5 MG TAB PO SCH ×3 (06:57→20:10)
--- NOTE | 2022-04-23 07:00 | NUR ---
NON ADMIT MIDODRINE. BP 146/86. ASYMPTOMATIC.
--- NOTE | 2022-04-23 07:12 | NUR ---
ENDORSED PT TO DAY SHIFT NURSE ADZE FOR CONTINUITY OF CARE. ALL NEEDS MET THROUGHOUT SHIFT. PT IS IN STABLE CONDITION.
[2022-04-23 07:31] LABS: CARBON DIOXIDE 22.7 mmol/L (21-32); CREATININE 2.9 mg/dL (0.6-1.3); POTASSIUM 3.7 mmol/L (3.5-5.1)
[2022-04-23] MEDS: PANTOPRAZOLE 40 MG TABEC PO SCH (09:22)
[2022-04-23] MEDS: levETIRAcetam 500 MG TAB PO SCH ×2 (09:22→20:13)
--- NOTE | 2022-04-23 11:33 | NUR ---
WOUND CARE NOTE: SKIN ASSESSMENT DONE WITH THIS 41 Y/O PT. AAX3,PT. ADMITTED WITH PRESSURE INJURY. AND OLD HEALED SCAR TO ISCHIALS AREA. PT SKIN MOIST, THIN, BONE TO SKIN BMI 17.2. ALBUMIN 2.4. PT. WITH LOW VIN SCALE AT MODERATE TO HIGH RISK, CONTINUE TO FOLLOW PRESSURE INJURY PREVENTION INTERVENTIONS. POC DISCUSSED WITH PT. PT VERBALIZES UNDERSTANDING. PT. ABLE TO TURN AND REPOSITION. POC DISCUSSED WITH PRIMARY RN FRANCINE. INTEGUMENTARY: -LIPS AND ORAL MUCOSA DRY AND CLEAN. SKIN INTACT. -ABDOMEN FLAT AND SOFT -MOISTURE ASSOCIATED SKIN DAMAGE(MASD) TO: B/L GROINS,PERINEUM, SKIN MOIST,RED. RIGHT UPPER BUTTOCK 1X1CM SUPERFICIAL EROSION, WOUND BED PINK AND MOIST, DARREL WOUND SKIN INTACT -PRESSURE INJURY STAGE 2, SACROCOCCYX 5X4CM, SUPERFICIAL WOUND BED 100% PINK TISSUE, MOIST, NO ODOR, WOUND EDGE FLAT, DARREL-WOUND SKIN DRY ABRASION PEELING SKIN. RECOMMENDATIONS: -APPLY Z GUARD TO B/L GROINS,PERINEUM BID AND PRN IF SOILING,PAIGE . -CLEANSE SACRALCOCCYX AND RIGHT UPPER BUTTOCK WITH NS, PAT DRY, APPLY Z GUARD AND COVER WITH FOAM DRESSING QD AND PRN IF SOILING -PROTECT HEELS, ELBOWS BONY PROMINENCES WITH FOAM DRESSING IF EXPOSED TO FRICTION Q3 DAYS AND PRN IF SOILING -POSITIONING: TURN AND REPOSITION PATIENT Q 2H OR SOONER USE PILLOWS TO KEEP BONY PROMINENCES FROM DIRECT CONTACT WITH SURFACES USE REPOSITIONING WEDGES TO PROVIDE 30-DEGREE ANGLE FOR SIDE LYING POSITIONS OFFLOADING OR FOAM DRESSING TO ALL TUBING TO PREVENT MEDICAL DEVICES RELATED PRESSURE INJURY -RE-EVALUATING AND MANAGING INCONTINENCE MONITOR SKIN CONDITION DURING POSITION CHANGE DO NOT MASSAGE REDNESS, BONY PROMINENCES FREQUENT DARREL-CARE AND PROVIDE BARRIER CREAMS PRN IF SOILING MOISTURE CONTROL BY OFFER BED HALL/URINAL /ABSORBENT PAD TO WICK AND HOLD MOISTURE KEEP SKIN DRY AND PROTECT FROM FRICTION -MANAGE FRICTION/SHEAR/MOBILITY KEEP HOB AT THE LOWEST LEVEL OF ELEVATION NO MORE THAN 30 DEGREE UNLESS OTHERWISE CONTRAINDICATED USE LIFT SHEET OR TRANSFER DEVICE TO MOVE PATIENT AND PREVENT LATERAL SHEER. PROTECT HEELS, ELBOWS BONY PROMINENCES WITH SKIN BERRIES OR FOAM DRESSING IF EXPOSED TO FRICTION OFFLOAD BILATERAL HEELS BY PLACING PILLOWS UNDER CALVES AT ALL TIMES, UNLESS OTHERWISE CONTRAINDICATED -PRESSURE REDISTRIBUTION SURFACE THERAPY COURTNEY ISOFLEX MATTRESS -NUTRITION: PLEASE FOLLOW RD RECOMMENDATIONS AND OFFER NUTRITION SUPPLEMENTS IF ORDERED.
[2022-04-23] MEDS ORDERED: Z-GUARD PASTE TP PRN (11:50)
[2022-04-23] MEDS ORDERED: FOAM DRESSING TP PRN (11:50)
[2022-04-23] MEDS: Z-GUARD PASTE TP SCH (13:00)
--- NOTE | 2022-04-23 19:06 | NUR ---
RECEIVED PT FROM DAY SHIFT NURSE ADJAYCEE FOR CONTINUITY OF CARE. PT AWAKE IN BED, EATING. NPO AFTER MIDNIGHT. FOR BILATERAL NEPHROSTOMY TOMORROW. PT AWARE. CALL LIGHT WITHIN REACH. SAFETY AND SZ PRECAUTIONS IN PLACE.
[2022-04-23] MEDS ORDERED: Z-GUARD PASTE TP ONE (19:40)
--- NOTE | 2022-04-23 19:40 | NUR ---
PT HAD BM. CLEANED AND CHANGED PT DIAPER. CHANGED IV LINE DRESSING AND FLUSHED IV. DISCUSSED POC. PT VERBALIZED UNDERSTANDING.
[2022-04-23 20:00] VITALS: BP 114/77
--- NOTE | 2022-04-23 20:00 | NUR ---
Patient's Plan of Care was discussed and reviewed with CIGARETTE VENDOR: JIM AYALA
--- NOTE | 2022-04-23 20:15 | NUR ---
ADMINISTERED DUE MEDS. PT TOLERATED WELL.
--- NOTE | 2022-04-23 21:16 | NUR ---
PT COMPLAINED OF BACK PAIN 09/22. PRN PAIN MED GIVEN BY RN KAMRAN. CHANGED PT BEDDINGS GOWN AND BLANKETS. Z-GUARD APPLIED. NIGHT CARE GIVEN.
--- NOTE | 2022-04-23 22:35 | NUR ---
PT STATED "I'M NOT CONSENTING TO THE PROCEDURE TOMORROW. I WANT A SECOND OPINION AT [facility]." DR BELL MADE AWARE.
[2022-04-24] MEDS: Z-GUARD PASTE TP SCH ×2 (00:55→13:01)
[2022-04-24] MEDS: HYDROcodone/APAP 7.5/325 MG 1 TAB PO PRN ×6 (01:34→21:40)
[2022-04-24 04:00] VITALS: BP 141/75
--- NOTE | 2022-04-24 05:45 | NUR ---
PT HAD BM. CLEANED AND CHANGED PT DIAPER. PT C/O OF 6/10 BACK PAIN. PRN PAIN MED GIVEN.
[2022-04-24] MEDS: PIPERACILLIN/TAZOBACTAM 2.25 GM in DEXTROSE 5% 50 ML IV SCH ×3 (05:52→20:39)
[2022-04-24] MEDS: MIDODRINE 5 MG TAB PO SCH ×3 (06:17→19:00)
[2022-04-24 07:29] LABS: BASOPHILS # (AUTO) 0.1 K/uL (0.00-0.22); BASOPHILS % (AUTO) 0.8 % (0.0-2.0); EOSINOPHILS # (AUTO) 0.2 K/uL (0-0.4); EOSINOPHILS % (AUTO) 1.7 % (0.0-4.0); HEMATOCRIT 29.1 % (36-48); HEMOGLOBIN 10.1 g/dL (12.0-16.0); LYMPHOCYTES # (AUTO) 0.8 K/uL (2.5-16.5); LYMPHOCYTES % (AUTO) 8.1 % (20.5-51.1); MEAN CORPUSCULAR HEMOGLOBIN 28 pg (27-31); MEAN CORPUSCULAR HGB CONC 35 g/dL (33-37); MEAN CORPUSCULAR VOLUME 80.1 fL (80-94); MONOCYTES # (AUTO) 0.2 K/uL (0.8-1.0); MONOCYTES % (AUTO) 2.4 % (1.7-9.3); NEUTROPHILS # (AUTO) 8.9 K/uL (1.8-7.7); PLATELET COUNT (AUTO) 332 K/uL (140-450); RED BLOOD CELL COUNT(AUTO) 3.64 MIL/uL (4.20-5.40); RED CELL DISTRIBUTION WIDTH 18.4 % (11.6-13.7); WHITE BLOOD COUNT (AUTO) 10.2 K/uL (4.8-10.8)
--- NOTE | 2022-04-24 07:34 | NUR ---
ENDORSED PT TO DAY SHIFT NURSE TRINI FOR CONTINUITY OF CARE. ALL NEEDS MET THROUGHOUT SHIFT. PT IS STABLE.
[2022-04-24 07:36] LABS: ANION GAP 13.4 (8-16); CARBON DIOXIDE 27.4 mmol/L (21-32); CREATININE 2.6 mg/dL (0.6-1.3); POTASSIUM 3.8 mmol/L (3.5-5.1)
[2022-04-24 08:00] VITALS: BP 127/77
[2022-04-24] MEDS: levETIRAcetam 500 MG TAB PO SCH ×2 (08:54→20:39)
[2022-04-24] MEDS: PANTOPRAZOLE 40 MG TABEC PO SCH (08:54)
--- NOTE | 2022-04-24 09:27 | NUR ---
PATIENT REFUSING NEPHROSTOMY TUBE PLACEMENT AND STATES SHE WANTS A SECOND OPINION AND WANTS TO BE TRANSFERRED TO [facility]. DR. BELL NOTIFIED AND STATES PATIENT CAN BE DISCHARGED AND TO NOTIFY PRIMARY MD. DR. CORRALES NOTIFIED. NO NEW ORDERS. Fernandez MARION RN.
--- NOTE | 2022-04-24 10:12 | NUR ---
DR. GAGE PRESENT ON THE UNIT AND SPOKE TO PATIENT REGARDING NEPHROSTOMY TUBE PLACEMENT. PATIENT NOW AGREEABLE TO DO PROCEDURE. DR. BELL, DR. CORRALES AND RADIOLOGY NOTIFIED. Fernandez ALEMAN RN.
--- NOTE | 2022-04-24 10:51 | NUR ---
RADIOLOGY CALLED BACK AND STATES THEY ARE UNABLE TO DO NEPHROSTOMY TUBE PLACEMENT TODAY DUE TO SCHEDULING OTHER PROCEDURES WHEN PATIENT REFUSED THIS MORNING. DR. MATHIS, DR. CORRALES AND DR. BELL NOTIFIED. DR. CORRALES RESUMED DIET AND PATIENT IS TO BE NPO AFTER MIDNIGHT FOR PROCEDURE TOMORROW. RADIOLOGY CALLED AND NOTIFIED TO RESCHEDULE PATIENT TOMORROW. Fernandez ALEMAN RN.
[2022-04-24 16:00] VITALS: BP 117/65
--- NOTE | 2022-04-24 19:15 | NUR ---
RECEIVED PT FROM MORNING SHIFT NURSE. PT IS AOX4, BEDREST, NEEDS TO VERBALIZE NEEDS AND ABLE TO FOLLOW COMMANDS. PT IS ON ROOM ARE AND NPO ON MIDNIGHT. PT HAS IV ON RIGHT INDEX FINGER GAUGE 24 RUNNING WITH NS AT TKO. PT HAS ALVAREZ CATHETER AND PT HAS A WOUND ON RIGHT HIP AND STAGE 1 PRESSURE ULCER ON SACRAL. ALL SAFETY MEASURES IMPLEMENTED. BED IN LOW POSITION, BED WHEELS ON LOCKED AND CALL LIGHT WITHIN REACH.
--- NOTE | 2022-04-24 20:39 | NUR ---
ALL SCHEDULED AND PRESCRIBED MEDICATION WAS GIVEN TO PT PER MD ORDER. ALL SAFETY MEASURES IMPLEMENTED. BED IN LOW POSITION, BED WHEELS ON LOCKED AND CALL LIGHT WITHIN REACH.
--- NOTE | 2022-04-24 21:40 | NUR ---
PRN PAIN MEDICATION WAS GIVEN TO PT DUE TO BACK PAIN WITH PAIN SCALE OF 6/10. ALL SAFETY MEASURES IMPLEMENTED. BED IN LOW POSITION, BED WHEELS ON LOCKED AND CALL LIGHT WITHIN REACH.
--- NOTE | 2022-04-25 | NUR ---
ADVISED THE PT THAT SHE'S ON NPO STARTING THIS TIME. PT AGREED AND VERBALIZED UNDERSTANDING. ALL SAFETY MEASURES IMPLEMENTED. BED IN LOW POSITION, BED WHEELS ON LOCKED AND CALL LIGHT WITHIN REACH.
[2022-04-25] MEDS: Z-GUARD PASTE TP SCH ×2 (01:01→13:00)
[2022-04-25] MEDS: HYDROcodone/APAP 7.5/325 MG 1 TAB PO PRN ×2 (02:09→06:36)
[2022-04-25 04:00] VITALS: BP 128/80
[2022-04-25] MEDS: PIPERACILLIN/TAZOBACTAM 2.25 GM in DEXTROSE 5% 50 ML IV SCH ×3 (04:45→22:06)
--- NOTE | 2022-04-25 04:45 | NUR ---
SCHEDULED AND PRESCRIBED MEDICATION WAS GIVEN TO PT PER MD ORDER. NO S/S OF RESPIRATORY DISTRESS NOTED. ALL SAFETY MEASURES IMPLEMENTED. BED IN LOW POSITION, BED WHEELS ON LOCK AND CALL LIGHT WITHIN REACH.
[2022-04-25] MEDS: MIDODRINE 5 MG TAB PO SCH ×3 (06:08→19:00)
[2022-04-25 07:22] LABS: ANION GAP 12.9 (8-16); CARBON DIOXIDE 22.8 mmol/L (21-32); CREATININE 2.8 mg/dL (0.6-1.3); POTASSIUM 4.7 mmol/L (3.5-5.1)
--- NOTE | 2022-04-25 07:30 | NUR ---
PT IS STABLE. ENDORSED PT TO MORNING SHIFT NURSE FOR CONTINUITY OF CARE.
[2022-04-25 07:38] LABS: HEMATOCRIT 24.2 % (36-48); HEMOGLOBIN 8.3 g/dL (12.0-16.0); MEAN CORPUSCULAR HEMOGLOBIN 28 pg (27-31); MEAN CORPUSCULAR HGB CONC 34 g/dL (33-37); MEAN CORPUSCULAR VOLUME 81.1 fL (80-94); PLATELET COUNT (AUTO) 208 K/uL (140-450); RED BLOOD CELL COUNT(AUTO) 2.99 MIL/uL (4.20-5.40); RED CELL DISTRIBUTION WIDTH 18.4 % (11.6-13.7); WHITE BLOOD COUNT (AUTO) 10.8 K/uL (4.8-10.8)
[2022-04-25 08:00] VITALS: BP 96/67
--- NOTE | 2022-04-25 08:02 | NUR ---
Patient's Plan of Care was discussed and reviewed with WINE FERMENTER:
[2022-04-25 08:45] LABS: LYMPHOCYTES % (MANUAL) 4 % (20-46); MONOCYTES % (MANUAL) 4 % (5-12)
[2022-04-25 08:46] LABS: BASOPHILS % (MANUAL) 0 % (0-2); BLASTS, MANUAL % 0 % (0-0); EOSINOPHILS % (MANUAL) 2 % (0-4); METAMYELOCYTES % 0 % (0-0); MYELOCYTES % 0 % (0-0); OTHER CELLS,MANUAL % 0 (0-0); PROMYELOCYTES % 0 % (0-0)
[2022-04-25 08:48] LABS: BUFFY COAT SMEAR PREP N
[2022-04-25] MEDS: levETIRAcetam 500 MG TAB PO SCH ×3 (09:00→21:19)
[2022-04-25] MEDS: PANTOPRAZOLE 40 MG TABEC PO SCH ×2 (09:00→11:04)
[2022-04-25 09:49] LABS: PROTHROMBIN TIME 10.6 secs (10.8-13.4)
--- NOTE | 2022-04-25 13:07 | NUR ---
pt taken off unit
[2022-04-25] MEDS ORDERED: fentaNYL citrate 0.05 MG/ML VIAL ONE (13:10)
[2022-04-25] MEDS ORDERED: MIDAZOLAM 2 MG/2 ML VIAL ONE (13:11)
[2022-04-25] MEDS ORDERED: LIDOCAINE 1% 500 MG/50 ML VIAL ONE (13:11)
[2022-04-25] MEDS ORDERED: FLUMAZENIL 0.5 MG/5 ML VIAL IVP ONE (13:12)
[2022-04-25] MEDS ORDERED: NALOXONE 0.4 MG/ML VIAL ONE (13:12)
[2022-04-25 16:00] VITALS: BP 129/75
--- NOTE | 2022-04-25 16:34 | NUR ---
04/25/22 RD FOLLOW UP COMPLETED PLEASE REFER TO NUTRITION ASSESSMENT UNDER CARE ACTIVITY FOR ESTIMATED NUTRITIONAL NEEDS. 1. CONTINUE NPO PER MD. 2. WHEN/IF MEDICALLY APPROPRIATE, RECOMMEND CCHO 60 GRAM RENAL TO DIET. 3. MONITOR PO INTAKE, GI, LAB VALUES. 4. RD TO FOLLOW-UP 2-3 DAYS, HIGH RISK REVIEWED BY KIKO NGO RD
[2022-04-25] MEDS: MORPHINE SULFATE 2 MG/ML SYR IVP PRN ×2 (16:51→23:10)
--- NOTE | 2022-04-25 19:20 | NUR ---
RECD. REPORT FROM AM NURSE, PATIENT RESTING IN BED, AWAKE, A/OX4. RESPIRATION EVEN AND UNLABORED. IV OF SALINE LOCK AT THE RIGHT THUMB G24, PATENT AND INTACT. WITH BILATERAL NEPHROSTOMY TUBES IN PLACED, DRAINING MODERATE AMOUNT OF PINKISH URINE. WITH ALVAREZ CATHETER, NO DRAIN NOTED. DENIES PAIN 0/10.
--- NOTE | 2022-04-25 22:23 | NUR ---
INFORMED DR. LOOMIS PATIENT HAD 4 DIARRHEA IN TWO HOURS. ORDERED IMMODIUM 2 MG Q TWO HOURS NEEDED.
[2022-04-25] MEDS: LOPERAMIDE 2 MG CAP PO PRN (22:45)
--- NOTE | 2022-04-25 22:45 | NUR ---
MEDICATED WITH IMODIUM PER MD ORDER.
[2022-04-25 22:49] VITALS: BP 113/72
--- NOTE | 2022-04-26 | NUR ---
IV INFILTRATED, NEW IV LINE INSERTED BY GRIFFIN NOYOLA AT THE RIGHT UPPER ARM G24.
--- NOTE | 2022-04-26 00:30 | NUR ---
HAD ANOTHER EPISODE OF DIARRHEA, CLEANSED BY PIE CRIMPING MACHINE OPERATOR.
[2022-04-26] MEDS: Z-GUARD PASTE TP SCH ×2 (01:03→13:41)
--- NOTE | 2022-04-26 01:30 | NUR ---
RESTING IN BED, NO COMPLAINT OF DIARRHEA.
[2022-04-26] MEDS: HYDROcodone/APAP 7.5/325 MG 1 TAB PO PRN (03:44)
[2022-04-26] MEDS: LOPERAMIDE 2 MG CAP PO PRN (03:44)
--- NOTE | 2022-04-26 04:30 | NUR ---
ABLE TO OBTAINED 250 ML PINKISH DRAINAGE FROM RIGHT NEPHROSTOMY TUBE AND 260 ML PINKISH DRAINAGE FROM LEFT NEPHROSTOMY TUBE.
[2022-04-26] MEDS: PIPERACILLIN/TAZOBACTAM 2.25 GM in DEXTROSE 5% 50 ML IV SCH (05:46)
--- NOTE | 2022-04-26 07:35 | NUR ---
CONDITION REMAIN STABLE. ENDORSED TO AM SHIFT NURE FOR CONTINUITY OF CARE.
[2022-04-26 08:00] VITALS: BP_SYST 116; BP_SYST 127; BP_DIAS 73; BP_DIAS 74
[2022-04-26] MEDS: levETIRAcetam 500 MG TAB PO SCH (08:23)
[2022-04-26] MEDS: MIDODRINE 5 MG TAB PO SCH ×2 (08:23→13:41)
[2022-04-26] MEDS: PANTOPRAZOLE 40 MG TABEC PO SCH (08:23)
[2022-04-26] MEDS: MORPHINE SULFATE 2 MG/ML SYR IVP PRN ×2 (08:24→13:48)
[2022-04-26] MEDS ORDERED: FOAM DRESSING TP SCH (09:00)
[2022-04-26] MEDS ORDERED: TAMS0.4C96 PO (10:24)
[2022-04-26] MEDS ORDERED: AMOX-999 PO (10:24)
[2022-04-26] MEDS ORDERED: KEP500 PO (10:24)
--- NOTE | 2022-04-26 12:35 | NUR ---
DC PLANNING: MET WITH THE PATIENT AT THE BEDSIDE TO DISCUSS DC PLANNING. PATIENT REQUESTED IF SHE CAN BE TRANSITIONED TO SNF FOR SHORT TERM CARE DUE TO NO ONE WILL BE ABLE TO CARE FOR HER AT HOME. PER PATIENT HIS SON GOES TO SCHOOL AND SHE WILL BE LEFT AT HOME WITH A 7 YEAR OLD. INFORMED PATIENT THAT CM WILL SEND REFERRALS TO SNF AND ONCE ACCEPTED, CM WILL UPDATE HER.
--- NOTE | 2022-04-26 12:48 | NUR ---
DC PLANNING: PATIENT REQUESTED TO GO TO SNF FOR NEPHROSTOMY CARE . PATIENT HAS A DC ORDER TO SNF. FAXED JOSIANE, AMARILIS CORNELIUS, ANA PAULA BYNUM AND KENDRICK BARRETO. CM TO FOLLOW Addendum: 04/26/22 at 1352 by Delicia Snyder RN DC PLANNING: PATIENT GOT ACCEPTED AT [facility] ANA PAULA CAN GO TO ROOM 22A # TO GIVE REPORT [phone]. BELEN FROM [facility] WILL ARRANGE TRANSPORT ETA 1600 NOTIFIED ADALGISA THE NURSE . CM TO FOLLOW
--- NOTE | 2022-04-26 15:59 | NUR ---
D/C VIA GURNEY TO [facility] WITH MEDICAL TRANSPORTER. SPEECH CLEAR. NO C/O PAIN. BILATERAL NEPHROSTOMY TUBE WITH BAG INTACT. IN STABLE CONDITION. INFORMED CHARGE NURSE -BHARGAV -JAZMÍN AND HEALTH CARE LAW SPECIALIST -HAN.
--- NOTE | 2022-04-26 18:42 | NUR ---
PT DISCHARGED TO SNF AND REPORT GIVEN TO FACILITY NURSE, PT LEFT WITH TRANSPORTER .[id number]
== END 2022-04-26 16:00 | DRG 100 ==
LOC: MED 15:00 → EDBD 15:00 → MTU 17:12 → MERGE 17:12 → MTU 18:13
PROVIDERS: ADMIT Family Medicine; ATTEND Family Medicine
PROC: 4A00X4Z Measurement of Central Nervous Electrical Activity, External Approach (ICD-10-PCS; principal; 2022-04-20)
PROC: 0T9B70Z Drainage of Bladder with Drainage Device, Via Natural or Artificial Opening (ICD-10-PCS; 2022-04-20)
PROC: 30233N1 Transfusion of Nonautologous Red Blood Cells into Peripheral Vein, Percutaneous Approach (ICD-10-PCS; 2022-04-22)
PROC: 0T9430Z Drainage of Left Kidney Pelvis with Drainage Device, Percutaneous Approach (ICD-10-PCS; 2022-04-25)
PROC: 0T9330Z Drainage of Right Kidney Pelvis with Drainage Device, Percutaneous Approach (ICD-10-PCS; 2022-04-25)
DX: G40.909 Epilepsy, unspecified, not intractable, without status epilepticus (principal); J18.9 Pneumonia, unspecified organism; N17.0 Acute kidney failure with tubular necrosis; R64 Cachexia; Z68.1 Body mass index [BMI] 19.9 or less, adult; N39.0 Urinary tract infection, site not specified; N10 Acute pyelonephritis; N13.2 Hydronephrosis with renal and ureteral calculous obstruction; D63.8 Anemia in other chronic diseases classified elsewhere; E87.6 Hypokalemia; E83.42 Hypomagnesemia; F14.10 Cocaine abuse, uncomplicated; N21.0 Calculus in bladder; R80.9 Proteinuria, unspecified; Z20.822 Contact with and (suspected) exposure to COVID-19; N18.31 Chronic kidney disease, stage 3a
CPT/HCPCS: 36415; 50432; 70450; 71045; 71250; 76770; 77003; 80048; 80053; 80305; 81001; 81025; 82150; 82272; 82553; 83036; 83690; 83735; 83880; 84100; 84436; 84439; 84443; 84479; 85018; 85025; 85610; 85730; 86886; 86900; 86901; 86920; 87081; 87086; 93005; 95816; 96361; 96365; 96375; 97112; 97116; 97163-GP; 97530; 99285; C1729; J0696; J1953; J2001; J2250; J2270; J2310; J2543; J3010; J3475; J3490; J7060; P9016; Q0092; Q9967

== ENCOUNTER 2022-05-12 11:05 | Inpatient (IN) | payer OTHER, MEDICAID ==
[~2022-05-12] VITALS: Ht 152.4 cm; Wt 50.8 kg
[~2022-05-12 11:05] MED LIST changes: +AMOX-999 PO; -CEPH-588 PO; -PHEN-1877 PO
[2022-05-12 11:10] VITALS: BP 120/68
--- NOTE | 2022-05-12 11:30 | NUR ---
41F BIBA FROM [facility] WITH C/O RIGHT NEPH TUBE MALF SINCE LAST NIGHT. PT REPORTS A CONSTANT, ACHING LIKE, 10/10 PAIN TO NEPHROSTOMY TUBE INCISION. PT DENIES FEVERS, CHILLS, N/V/D. PT CHANGED INTO GOWN, PLACED ON BEDSIDE MONITOR, SIDE RAILS X2.
[2022-05-12] MEDS ORDERED: MORPHINE SULFATE 4 MG/ML SYR IVP ONE (11:35)
[2022-05-12 12:40] LABS: BASOPHILS % (AUTO) 0.4 % (0.0-2.0); EOSINOPHILS # (AUTO) 0.4 K/uL (0-0.4); EOSINOPHILS % (AUTO) 5.8 % (0.0-4.0); HEMATOCRIT 22.4 % (36-48); HEMOGLOBIN 7.1 g/dL (12.0-16.0); LYMPHOCYTES # (AUTO) 1.5 K/uL (2.5-16.5); LYMPHOCYTES % (AUTO) 21.3 % (20.5-51.1); MEAN CORPUSCULAR HEMOGLOBIN 27 pg (27-31); MEAN CORPUSCULAR HGB CONC 32 g/dL (33-37); MONOCYTES # (AUTO) 0.7 K/uL (0.8-1.0); MONOCYTES % (AUTO) 9.8 % (1.7-9.3); NEUTROPHILS # (AUTO) 4.5 K/uL (1.8-7.7); NEUTROPHILS % (AUTO) 62.7 % (42.2-75.2); PLATELET COUNT (AUTO) 286 K/uL (140-450); RED BLOOD CELL COUNT(AUTO) 2.64 MIL/uL (4.20-5.40); RED CELL DISTRIBUTION WIDTH 19.3 % (11.6-13.7); WHITE BLOOD COUNT (AUTO) 7.1 K/uL (4.8-10.8)
[2022-05-12 12:44] LABS: PROTHROMBIN TIME 10.3 secs (10.8-13.4)
[2022-05-12 12:48] LABS: ALBUMIN 2.4 g/dL (3.4-5.0); ANION GAP 15.3 (8-16); CARBON DIOXIDE 17.6 mmol/L (21-32); CREATININE 3.1 mg/dL (0.6-1.3); POTASSIUM 3.9 mmol/L (3.5-5.1); TOTAL BILIRUBIN 0.2 mg/dL (0.0-1.0)
--- NOTE | 2022-05-12 13:12 | NUR ---
PT TAKEN TO CT VIA [facility].
--- NOTE | 2022-05-12 13:21 | NUR ---
PT BROUGHT BACK FROM CT VIA [facility].
[2022-05-12] MEDS ORDERED: POTASSIUM CHLORIDE 10 MEQ TABER PO PRN (13:35)
[2022-05-12] MEDS ORDERED: guaiFENesin DM 200/20 MG-10 ML 10 ML UDC PO PRN (13:35)
[2022-05-12] MEDS ORDERED: HYDROcodone/APAP 7.5/325 MG 1 TAB PO PRN (13:35)
[2022-05-12] MEDS ORDERED: ONDANSETRON 4 MG/2 ML VIAL IM/IVP PRN (13:35)
[2022-05-12] MEDS ORDERED: ZOLPIDEM 5 MG TAB PO PRN (13:35)
[2022-05-12] MEDS ORDERED: ACETAMINOPHEN 325 MG TAB PO PRN (13:35)
[2022-05-12] MEDS ORDERED: DOCUSATE SODIUM 100 MG GELCAP PO PRN (13:35)
--- NOTE | 2022-05-12 13:40 | NUR ---
NOEMY SWAB COLLECTED AND WALKED TO LAB.
--- NOTE | 2022-05-12 13:43 | NUR ---
XRAY AT BEDSIDE.
[2022-05-12] MEDS: NACL 0.9% 1,000 ML IV SCH (14:05)
[2022-05-12] MEDS ORDERED: KEP500 PO (14:16)
[2022-05-12] MEDS ORDERED: diphenhydrAMINE 50 MG/ML VIAL IVP ONE (14:25)
--- NOTE | 2022-05-12 14:59 | NUR ---
UNABLE TO OBTAIN EKG DUE TO PT DISCOMFORT. PT STATES EKG STICKERS IRRITATE SKIN. REFUSES EKG UNTIL HAVING SOMETHING FOR ITCHINESS.
[2022-05-12 16:05] LABS: CHOL/HDL RATIO 1.9 (1-4.5); FREE T4 (FREE THYROXINE) 0.85 ng/dL (0.76-1.46); MAGNESIUM 1.4 mg/dL (1.8-2.4); PHOSPHORUS 6.4 mg/dL (2.5-4.9); THYROID STIMULATING HORMONE 2.56 uIU/mL (0.34-3.74)
[2022-05-12] MEDS: MORPHINE SULFATE 2 MG/ML SYR IVP PRN (17:09)
--- NOTE | 2022-05-12 19:15 | NUR ---
Pt report given to JAZMÍN Riojas. Transfer of care at this time.
--- NOTE | 2022-05-12 19:50 | NUR ---
Patient resting in bed, A/Ox4, chest rise and fall symmetrical, no c/o pain or s/s of distress, seizure precautions/pads in place, patient on monitor.
--- NOTE | 2022-05-12 20:30 | NUR ---
Patient resting in bed, A/Ox4, chest rise and fall symmetrical, no c/o pain or s/s of distress, patient on monitor Addendum: 05/12/22 at 2140 by [id number] Patient resting in bed, A/Ox4, chest rise and fall symmetrical, no c/o pain or s/s of distress, seizure precautions/pads in place, patient on monitor.
--- NOTE | 2022-05-12 21:01 | NUR ---
Patient verbally informed that Morphine, which she requested,was given 4 hrs ago and order is q6H and can not be given for 2 hours. Patient offered [place] PRN which was ordered by physician. Patient verbally refused [place] and stated, "Just take me to the [facility] floor."
--- NOTE | 2022-05-12 21:05 | NUR ---
Patient will be admitted to care of Kavya NOYOLA. Admited to [facility]. Will go to room 115. Belongings list completed. Report to Kavya NOYOLA. Kavya NOYOLA verbalized understanding of report, no further questions.
--- NOTE | 2022-05-12 21:30 | NUR ---
PT WAS ADMITTED TO [facility] DEPART FROM ER THRU [facility] WITH DIAGNOSIS OF NEPHROSTOMY TUBE MALFUNCTION PT IS AOX4, ON BEDREST, ABLE TO VERBALIZE NEEDS AND ABLE TO FOLLOW COMMANDS. PT IS ON ROOM AIR AND ON REGULAR DIET. PT HAS IV ON LEFT FOREARM GAUGE 22 RUNNING WITH NS AT 60 ML/HR. PT SKIN IS INTACT. PT DENIES PAIN AT THIS TIME. NO S/S OF RESPIRATORY DISTRESS NOTED. PT WAS ORIENTED TO ROOM, BED BUTTONS AN CALL LIGHT. ALL SAFETY MEASURES IMPLEMENTED. BED IN LOW POSITION, BED WHEELS ON LOCK AND CALL LIGHT WITHIN REACH.
--- NOTE | 2022-05-12 22:59 | NUR ---
DR. LOOMIS WAS NOTIFIED THAT THE PT'S MAGNESIUM IS 1.4 AND ER NURSE DIDNT COVER IT BUT THERE'S SCHEDULE MAGNESIUM OXIDE 400MG AT [address] JOSEF[address] LOOMIS WANTS TO FOLLOW THE SCHEDULE OF MAGNESIUM.
[2022-05-13] VITALS: BP 146/76
[2022-05-13] MEDS: MORPHINE SULFATE 2 MG/ML SYR IVP PRN ×3 (00:27→18:22)
--- NOTE | 2022-05-13 02:00 | NUR ---
PT POOP. CLEANED THE PT AND CHANGED CHUCKS AND GAVE WARM BLANKET TO PT. NO COMPLAIN OF PAIN. NO S/S OF RESPIRATORY DISTRESS NOTED. ALL SAFETY MEASURES IMPLEMENTED. BED IN LOW POSITION, BED WHEELS ON LOCK AND CALL LIGHT WITHIN REACH.
[2022-05-13 02:40] LABS: APPEARANCE,URINE CLEAR (CLEAR); BILIRUBIN,URINE NEGATIVE (NEGATIVE); BLOOD, URINE 1+ (NEGATIVE); COLOR,URINE YELLOW (YELLOW); LEUKOCYTE ESTERASE ,URINE 2+ (NEGATIVE); NITRITE, URINE POSITIVE (NEGATIVE); UGLUCOSE NEGATIVE (NEGATIVE)
[2022-05-13 03:02] LABS: RBC,URINE 0-5 /HPF (0-5); WBC,URINE 60-80 /HPF (0-5); YEAST,URINE Moderate /HPF (None Seen)
[2022-05-13] MEDS: NACL 0.9% 1,000 ML IV SCH ×2 (06:15→22:58)
[2022-05-13 06:41] LABS: BASOPHILS % (AUTO) 0.5 % (0.0-2.0); EOSINOPHILS # (AUTO) 0.4 K/uL (0-0.4); EOSINOPHILS % (AUTO) 4.7 % (0.0-4.0); HEMATOCRIT 21.4 % (36-48); HEMOGLOBIN 7.1 g/dL (12.0-16.0); LYMPHOCYTES # (AUTO) 1.2 K/uL (2.5-16.5); LYMPHOCYTES % (AUTO) 15.1 % (20.5-51.1); MEAN CORPUSCULAR HEMOGLOBIN 28 pg (27-31); MEAN CORPUSCULAR HGB CONC 33 g/dL (33-37); MEAN CORPUSCULAR VOLUME 83.8 fL (80-94); MONOCYTES # (AUTO) 0.5 K/uL (0.8-1.0); MONOCYTES % (AUTO) 6.5 % (1.7-9.3); NEUTROPHILS # (AUTO) 5.8 K/uL (1.8-7.7); NEUTROPHILS % (AUTO) 73.2 % (42.2-75.2); PLATELET COUNT (AUTO) 326 K/uL (140-450); RED BLOOD CELL COUNT(AUTO) 2.56 MIL/uL (4.20-5.40); RED CELL DISTRIBUTION WIDTH 18.7 % (11.6-13.7)
--- NOTE | 2022-05-13 07:22 | NUR ---
PT IS STABLE. NO ACUTE EVENTS THROUGHOUT THE NIGHT.NO S/SX OF DISTRESS AT THIS MOMENT.ALL NEEDS ATTENDED. ALL PRECAUTIONS IN PLACE. CALL LIGHT WITHIN REACH. ENDORSED TO DAY RN.
[2022-05-13 07:38] LABS: CARBON DIOXIDE 14.4 mmol/L (21-32); CREATININE 3.1 mg/dL (0.6-1.3); POTASSIUM 4.4 mmol/L (3.5-5.1)
[2022-05-13 08:00] VITALS: BP 139/81
[2022-05-13] MEDS: CALCIUM ACETATE 667 MG TAB PO SCH ×3 (08:00→17:21)
[2022-05-13] MEDS: MAGNESIUM OXIDE 400 MG TAB PO SCH (09:08)
[2022-05-13] MEDS: PANTOPRAZOLE 40 MG TABEC PO SCH (09:08)
--- NOTE | 2022-05-13 09:10 | NUR ---
PATIENT HAS BEEN SCREENED AND CATEGORIZED LOW NUTRITION RISK. PATIENT WILL BE SEEN WITHIN 7 DAYS OF ADMISSION. 05/12/22-05/19/[address]
[2022-05-13] MEDS ORDERED: MAG SULF 2000 MG/WATER PREMIX 50 ML IV ONE (11:40)
[2022-05-13 16:00] VITALS: BP 147/73
--- NOTE | 2022-05-13 19:00 | NUR ---
RECEIVED PT FROM MORNING SHIFT NURSE. PT IS SITTING ON THE BED, WATCHING TV. PT IS AOX4, BEDREST, ABLE TO VERBALIZE NEEDS AND ABLE TO FOLLOW COMMANDS. PT IS ON ROOM AIR AND ON REGULAR DIET. PT HAS IV ON LEFT FOREARM GAUGE 22 RUNNING WITH NS AT 60 ML/HR. PT HAS BILATERAL NEPHROSTOMY TUBE. PT SKIN IS INTACT. NO COMPLAIN OF PAIN AT THIS TIME. NO S/S OF RESPIRATORY DISTRESS NOTED. ALL SAFETY MEASURES IMPLEMENTED. BED IN LOW POSITION, BED WHEELS ON LOCK AND CALL LIGHT WITHIN REACH.
[2022-05-13] MEDS: SODIUM BICARBONATE 650 MG TAB PO SCH (20:21)
--- NOTE | 2022-05-13 20:21 | NUR ---
SCHEDULED AND PRESCRIBED MEDICATION WAS GIVEN TO PT PER MD ORDER. ALL SAFETY MEASURES IMPLEMENTED. BED IN LOW POSITION, BED WHEELS ON LOCK AND CALL LIGHT WITHIN REACH.
--- NOTE | 2022-05-13 20:39 | NUR ---
PT WAS GIVEN BENADRYL DUE TO ITCHINESS TO TAPE. ALL SAFETY MEASURES IMPLEMENTED. BED IN LOW POSITION, BED WHEELS ON LOCK AND CALL LIGHT WITHIN REACH.
[2022-05-14] VITALS: BP 101/67
[2022-05-14] MEDS: MORPHINE SULFATE 2 MG/ML SYR IVP PRN ×4 (00:28→21:25)
--- NOTE | 2022-05-14 00:28 | NUR ---
PRN PAIN MEDICATION WAS GIVEN TO PT DUE TO BACK PAIN WITH THE PAIN SCALE OF 8/10. ALL SAFETY MEASURES IMPLEMENTED. BED IN LOW POSITION, BED WHEELS ON LOCK AND CALL LIGHT WITHIN REACH.
--- NOTE | 2022-05-14 02:00 | NUR ---
PT IS SLEEPING. CHEST RISE AND FALL SYMMETRICALLY NOTED. RESPIRATION IS EVEN AND UNLABORED. ALL SAFETY MEASURES IMPLEMENTED. BED IN LOW POSITION, BED WHEELS ON LOCK AND CALL LIGHT WITHIN REACH.
--- NOTE | 2022-05-14 07:30 | NUR ---
RECIEVED PATIENT FROM [facility] MACHINE OPERATOR HELPER NURSE.PATIENT IS STABLE,VERBALLY ACTIVE.ON BEDREST,HAVING BL NEPROSTOMY TUBE.ON ROOM AIR.POC DISCUSSED.ALL SAFETY MEASURES ARE IN PLACE.WILL CONTINUE TO MONITOR.
[2022-05-14 08:00] VITALS: BP 104/73
[2022-05-14 08:14] LABS: ANION GAP 14.7 (8-16); CARBON DIOXIDE 16.9 mmol/L (21-32); CREATININE 2.9 mg/dL (0.6-1.3); POTASSIUM 4.6 mmol/L (3.5-5.1)
[2022-05-14] MEDS: PANTOPRAZOLE 40 MG TABEC PO SCH (08:22)
[2022-05-14] MEDS: SODIUM BICARBONATE 650 MG TAB PO SCH ×2 (08:23→21:00)
[2022-05-14] MEDS: CALCIUM ACETATE 667 MG TAB PO SCH ×3 (08:23→17:53)
[2022-05-14] MEDS: MAGNESIUM OXIDE 400 MG TAB PO SCH (08:24)
[2022-05-14] MEDS ORDERED: diphenhydrAMINE 50 MG/ML VIAL IVP SCH (09:07)
[2022-05-14 09:46] LABS: BASOPHILS % (AUTO) 0.5 % (0.0-2.0); EOSINOPHILS # (AUTO) 0.4 K/uL (0-0.4); LYMPHOCYTES # (AUTO) 1.5 K/uL (2.5-16.5); LYMPHOCYTES % (AUTO) 23.5 % (20.5-51.1); MEAN CORPUSCULAR HEMOGLOBIN 27 pg (27-31); MEAN CORPUSCULAR HGB CONC 32 g/dL (33-37); MEAN CORPUSCULAR VOLUME 85.9 fL (80-94); MONOCYTES # (AUTO) 0.6 K/uL (0.8-1.0); MONOCYTES % (AUTO) 9.2 % (1.7-9.3); NEUTROPHILS # (AUTO) 3.7 K/uL (1.8-7.7); NEUTROPHILS % (AUTO) 59.8 % (42.2-75.2); PLATELET COUNT (AUTO) 337 K/uL (140-450); RED BLOOD CELL COUNT(AUTO) 2.55 MIL/uL (4.20-5.40); RED CELL DISTRIBUTION WIDTH 19.1 % (11.6-13.7); WHITE BLOOD COUNT (AUTO) 6.2 K/uL (4.8-10.8)
[2022-05-14] MEDS ORDERED: LIDOCAINE 2% 1000 MG/50 ML VIAL INJ ONE (10:05)
[2022-05-14] MEDS ORDERED: LIDOCAINE 1% 500 MG/ 50 ML VIAL INJ SCH (10:39)
--- NOTE | 2022-05-14 10:52 | NUR ---
patient to CT for IR nephrostomy tube placement. assisted patient to CT per radiologist patient needs to be on conscious sedation. called OR nurse to assist.
[2022-05-14] MEDS ORDERED: fentaNYL citrate 0.05 MG/ML VIAL ONE (11:10)
[2022-05-14] MEDS ORDERED: MIDAZOLAM 5 MG/5 ML VIAL ONE (11:11)
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
--- NOTE | 2022-05-14 13:11 | NUR ---
patient back from CT. Bilateral Nephrostomy tube intact. patient stable at this time. will monitor closely
[2022-05-14] MEDS ORDERED: MAGNESIUM HYDROXIDE 2400 MG/30 ML UDC PO PRN (14:35)
[2022-05-14] MEDS: NACL 0.9% 1,000 ML IV SCH (15:35)
[2022-05-14 16:00] VITALS: BP 104/73
--- NOTE | 2022-05-14 16:36 | NUR ---
BLOOD TRANSFUSION STARTED. VITAL SIGNS STABLE AT THIS TIME. WILL MONITOR CLOSELY
[2022-05-14] MEDS ORDERED: EPOETIN ALFA-EPBX 10,000 UNITS/ML VIAL IV SCH (17:00)
--- NOTE | 2022-05-14 19:05 | NUR ---
RECEIVED ENDORSEMENT FROM FRANCINE NOYOLA (REGISTRY) AND ABHIJEET HAGAN RN , PATIENT WAS STABLE DURING SHIFT REPORT. PATIENT WAS FINISHING BLOOD TRANSFUSION. PATIENT COMPLAINED FOR HER PAIN MEDICATION BUT IT WADS NOT DUE. SHE WAS GIVEN EDUCATION ON PAIN MANAGEMENT TIME SCHEDULE. PATIENT WAS OFFERED AN ORAL PAIN MEDICATION AND SHE DECLINED. PATIENT WAS ON ROOM AIR SATURATING AT 95%. NO NOTED RESPIRATORY DISTRESS. NURSING NOTED BLOOD ALL OVER THE BED AND PATIENT FROM TRANSFUSION. NURSING GAVE PATIENT A BATH AND CLEANED IT UP AND NOTED IV 22GAGE WADS COMPLETELY OUT OF HER ARM. NURSING ATTEMPTED X 3 AND NO AVAIL. NURSING WILL ASK COVERING RN FOR ASSISTANCE FOR A NEW IV SITE. CALL LIGHT WITHIN REACH AND SIDE RAILS UP X 2 FOR SAFETY AND COMFORT. [id number]
[2022-05-14 20:00] VITALS: BP 152/82
--- NOTE | 2022-05-14 21:03 | NUR ---
COVERING RN MADELINE WAS INFORMED OF LEAKING IV AND NEED FOR PAIN MEDICATION. PATIENT MOTHER CONTINUES TO CALL WHEN WE HAVE INFORMED THE PATIENT OF THE CIRCUMSTANCES AND THE MEDICAL ORDERS THAT ARE FOLLOWED PER HER MD ORDERS. PATIENT WAS EDUCATED ON USING HER CALL LIGHT FOR ALL AND ANY ASSISTANCE. [id number]
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
[2022-05-15] MEDS: MORPHINE SULFATE 2 MG/ML SYR IVP PRN ×3 (00:52→14:26)
--- NOTE | 2022-05-15 02:41 | NUR ---
PATIENT WAS CHANGED AND ADVISED TO HAVE ENGINEERING APPROVE HER HEATING BLANKET BEFORE PLUGGING THEM INTO HOSPITAL OUTLETS. PATIENT WAS KEPT CLEAN AND DRY. BATHE AND CHANGED ALL LINEN AND GOWN. [email or web address]
[2022-05-15 04:00] VITALS: BP 120/64
--- NOTE | 2022-05-15 05:21 | NUR ---
PATIENT WAS KEPT CLEAN AND DRY. BOWEL MOVEMENT SOFT BUT FORMED. PATIENT CONTINUES TO CALL ON THE CALL LIGHT FOR TIME WHEN PAIN MEDICATION IS DUE. PATIENT EDUCATION ON EVERY 6 HOURS. PATIENT CONTINUES TO TUG AND PULL ON NEPHRO DRAINAGES. WILL ENDORSE TO AM SHIFT. [email or web address]
--- NOTE | 2022-05-15 07:10 | NUR ---
ENDORSED PATIENT TO YONATAN NOYOLA (REGISTRY), PATIENT WAS CONSENTED FOR MIDLINE. [email or web address]
[2022-05-15 07:26] LABS: ANION GAP 15.8 (8-16); CARBON DIOXIDE 17.1 mmol/L (21-32); CREATININE 2.6 mg/dL (0.6-1.3); POTASSIUM 3.9 mmol/L (3.5-5.1)
[2022-05-15 07:30] LABS: BASOPHILS % (AUTO) 0.7 % (0.0-2.0); EOSINOPHILS # (AUTO) 0.4 K/uL (0-0.4); EOSINOPHILS % (AUTO) 5.7 % (0.0-4.0); HEMOGLOBIN 8.7 g/dL (12.0-16.0); LYMPHOCYTES # (AUTO) 1.1 K/uL (2.5-16.5); LYMPHOCYTES % (AUTO) 15.4 % (20.5-51.1); MEAN CORPUSCULAR HEMOGLOBIN 28 pg (27-31); MEAN CORPUSCULAR HGB CONC 34 g/dL (33-37); MEAN CORPUSCULAR VOLUME 83.5 fL (80-94); MONOCYTES # (AUTO) 0.8 K/uL (0.8-1.0); MONOCYTES % (AUTO) 10.6 % (1.7-9.3); NEUTROPHILS # (AUTO) 4.9 K/uL (1.8-7.7); NEUTROPHILS % (AUTO) 67.6 % (42.2-75.2); PLATELET COUNT (AUTO) 390 K/uL (140-450); RED BLOOD CELL COUNT(AUTO) 3.11 MIL/uL (4.20-5.40); RED CELL DISTRIBUTION WIDTH 17.6 % (11.6-13.7); WHITE BLOOD COUNT (AUTO) 7.2 K/uL (4.8-10.8)
[2022-05-15 08:23] LABS: BARBITURATE, URINE NEGATIVE ng/ml (NEG <=200); BENZODIAZEPINE, URINE NEGATIVE ng/mL (NEG <=200); CANNABINOID, URINE NEGATIVE ng/mL (NEG <=50); COCAINE, URINE NEGATIVE ng/mL (NEG <=300); OPIATE, URINE POSITIVE ng/mL (NEG <=2000); PHENCYCLIDINE SCREEN,URINE NEGATIVE ng/mL (NEG <=25)
[2022-05-15] MEDS: PANTOPRAZOLE 40 MG TABEC PO SCH (08:24)
[2022-05-15] MEDS: NACL 0.9% 1,000 ML IV SCH (08:24)
[2022-05-15] MEDS: MAGNESIUM OXIDE 400 MG TAB PO SCH (08:24)
[2022-05-15] MEDS: SODIUM BICARBONATE 650 MG TAB PO SCH (08:24)
[2022-05-15 12:00] VITALS: BP 131/80
[2022-05-15] MEDS ORDERED: DOCU-299 PO (16:27)
--- NOTE | 2022-05-15 18:03 | NUR ---
PT WITH DISCHARGE ORDER REPORT CALLED TO KYLEIGH GOSS AND GIVEN TO CONG WANG PT GOING TO ROOM 15 AWAITING A FILTER SCREEN CLEANER TIME FROM PATIENT FINANCIAL SERVICES SPECIALIST WILL DC IV UPON AMBULANCE ARRIVAL PT AWARE
--- NOTE | 2022-05-15 18:47 | NUR ---
AMBULANCE IN TO [facility] PT STABLE NO ACUTE DISTRESS NOTED
== END 2022-05-15 18:50 | DRG 698 ==
LOC: MED 11:05 → MTU 12:57
PROVIDERS: ADMIT Family Medicine; ATTEND Family Medicine
PROC: 30233N1 Transfusion of Nonautologous Red Blood Cells into Peripheral Vein, Percutaneous Approach (ICD-10-PCS; principal; 2022-05-14)
PROC: 0T9430Z Drainage of Left Kidney Pelvis with Drainage Device, Percutaneous Approach (ICD-10-PCS; 2022-05-14)
PROC: 0T9330Z Drainage of Right Kidney Pelvis with Drainage Device, Percutaneous Approach (ICD-10-PCS; 2022-05-14)
DX: T83.022A Displacement of nephrostomy catheter, initial encounter (principal); E43 Unspecified severe protein-calorie malnutrition; N17.0 Acute kidney failure with tubular necrosis; N13.6 Pyonephrosis; N99.522 Malfunction of incontinent external stoma of urinary tract; Y84.6 Urinary catheterization as the cause of abnormal reaction of the patient, or of later complication, without mention of misadventure at the time of the procedure; N13.9 Obstructive and reflux uropathy, unspecified; Z20.822 Contact with and (suspected) exposure to COVID-19; G40.909 Epilepsy, unspecified, not intractable, without status epilepticus; D64.9 Anemia, unspecified; E83.39 Other disorders of phosphorus metabolism; E83.42 Hypomagnesemia; F14.10 Cocaine abuse, uncomplicated; N18.9 Chronic kidney disease, unspecified; Z79.899 Other long term (current) drug therapy; Z88.8 Allergy status to other drugs, medicaments and biological substances; Y92.89 Other specified places as the place of occurrence of the external cause
CPT/HCPCS: 36415; 71045; 75989; 80048; 80053; 80305; 81001; 82150; 82272; 82728; 83036; 83540; 83690; 83735; 83880; 84100; 84436; 84439; 84443; 84479; 85025; 85610; 85730; 86886; 86900; 86901; 86920; 87040; 87081; 87086; 96374; 96375; 99285; J1200; J2001; J2250; J2270; J3010; J3475; P9016; Q0163

== ENCOUNTER 2022-05-30 16:12 | Emergency (ER) | payer OTHER, MEDICAID ==
[~2022-05-30] VITALS: Ht 162.6 cm; Wt 49.9 kg
[~2022-05-30 16:12] MED LIST changes: -AMOX-999 PO; +DOCU-299 PO
--- NOTE | 2022-05-30 16:16 | NUR ---
BIBA BLS TO ER BED 2
[2022-05-30 16:34] VITALS: BP 133/79
[2022-05-30] MEDS ORDERED: LOPE-289 PO (17:06)
[2022-05-30] MEDS ORDERED: CIPR500T4 PO (17:06)
[2022-05-30] MEDS ORDERED: ONDA8TAB87 PO (17:06)
--- NOTE | 2022-05-30 17:28 | NUR ---
Patient discharged with v/s stable. Written and verbal after care instructions ABOUT NAUSEA AND VOMITING AND DIARRHEA given and explained. Patient alert, oriented and verbalized understanding of instructions. Wheel Chair Assisted with to OUTSIDE OF LOBBY PER PT REQUEST TO WAIT FOR FAMILY. All questions addressed prior to discharge. ID band removed. Patient advised to follow up with PMD. Rx of CIPRO, IMODIUM, AND ZOFRAN given. Patient educated on indication of medication including possible reaction and side effects. Opportunity to ask questions provided and answered.
--- NOTE | 2022-05-30 17:28 | NUR ---
PT REQUESTING TO WAIT OUTSIDE FOR HER SON TO PICK HER UP. PT W/C ASSISTED OUT ER LOBBY. SPOKE WITH PTS SON, STATED HE IS ON HIS WAY
== END 2022-05-30 17:28 | disposition home or self-care (01) ==
LOC: MED 16:12
DX: R11.2 Nausea with vomiting, unspecified (principal); R19.7 Diarrhea, unspecified; I10 Essential (primary) hypertension; E11.9 Type 2 diabetes mellitus without complications; Z79.4 Long term (current) use of insulin; Z79.899 Other long term (current) drug therapy
CPT/HCPCS: 99283

== ENCOUNTER 2022-06-08 14:20 | Emergency (ER) | payer OTHER, MEDICAID ==
[~2022-06-08] VITALS: Ht 162.6 cm; Wt 45.4 kg
[~2022-06-08 14:20] MED LIST changes: +CIPR500T4 PO; +LOPE-289 PO; +ONDA8TAB87 PO
[2022-06-08 14:25] VITALS: BP 142/88
--- NOTE | 2022-06-08 14:25 | NUR ---
[facility] TO ER BED 9
--- NOTE | 2022-06-08 14:42 | NUR ---
ASSUMED PATIENT CARE, PATIENT IS ALERT, AWAKE, ORIENTED. PATIENT IS REFUSING TO RECEIVE TREATMENT AND WOULD LIKE TO LEAVE AMA. REACHED OUT TO PATIENT'S MOTHER, RENUKA, AND PATIENT IS SPEAKING TO HER ASKING HER TO PICK HER UP. MD AWARE, AMA FORM SIGNED BY PATIENT ACCORDINGLY, AWAITING MOM'S ARRIVAL.
--- NOTE | 2022-06-08 14:43 | NUR ---
PT NOW A/OX4, VERBALLY RESPONSIVE
--- NOTE | 2022-06-08 14:43 | NUR ---
Patient does not wish to proceed with medical care recommended by DR EDWARD. Patient given information related to possible complications, up to and including , which could occur as a result of leaving hospital at this time. Patient verbalizes understanding of risks involved leaving against medical advice. Patient has signed AMA form.
--- NOTE | 2022-06-08 15:01 | NUR ---
PT W/C ASSISTED TO CAR WITH FAMILY
== END 2022-06-08 14:43 | disposition left against medical advice (07) ==
LOC: MED 14:20
DX: T83.092A Other mechanical complication of nephrostomy catheter, initial encounter (principal); E11.9 Type 2 diabetes mellitus without complications; I10 Essential (primary) hypertension; Z86.69 Personal history of other diseases of the nervous system and sense organs; Z79.899 Other long term (current) drug therapy; Z79.2 Long term (current) use of antibiotics; Z88.6 Allergy status to analgesic agent
CPT/HCPCS: 99283